=== PATIENT | male | born 1950 | race Two or more races ===

== ENCOUNTER → 2020-08-22 15:59 | Outpatient (BNVA) | payer MEDICARE, SELFPAY | PROVIDERS: PCP Internal Medicine; Visit Provider Nurse Practitioner | DX: Z13.89 Encounter for screening for other disorder (principal) | CPT/HCPCS: Q3014 ==

== ENCOUNTER 2020-09-04 16:36 | Outpatient (REF) | payer MEDICARE, SELFPAY ==
[2020-09-04 17:53] LABS: MANUAL DIFF FLAG NO
[2020-09-04 18:00] LABS: Basophils Absolute Auto 0.1 X10*3/uL (0.0-0.2); Basophils Percent Auto 0.9 % (0-2); Eosinophils Absolute Auto 0.4 X10*3/uL (0.0-0.4); Eosinophils Percent Auto 4.2 % (0-4); Hematocrit 43.8 % (42-52); Hemoglobin 14.2 g/dl (14.0-18.0); Imm Gran Abs Auto 0.01 X10*3/uL (0.00-0.03); Imm Gran Pct Auto 0.1 % (0.0-0.4); Lymphocytes Absolute Auto 1.5 X10*3/uL (1.2-4.9); Lymphocytes Percent Auto 17.2 % (20-40); Mean Corpuscular HGB Conc 32.4 g/dl (31.0-36.0); Mean Corpuscular Hemoglobin 29.6 pg (27.0-33.0); Mean Corpuscular Volume 91.4 fL (80-98); Mean Platelet Volume 10.2 fL (9.4-12.4); Monocytes Absolute Auto 0.7 X10*3/uL (0.1-1.2); Monocytes Percent Auto 7.4 % (2-11); Neutrophils Absolute Auto 6.2 X10*3/uL (2.0-8.3); Neutrophils Percent Auto 70.2 % (45-73); Platelet Count 328 X10*3/uL (160-400); Red Blood Count 4.79 X10*6/uL (4.60-5.80); Red Cell Distribution Width 16.1 % (11.0-16.0); White Blood Count 8.8 X10*3/uL (4.8-10.8)
[2020-09-04 18:31] LABS: Alanine Aminotransferase 22 U/L (0-40); Albumin Level 4.3 g/dL (3.5-5.0); Alkaline Phosphatase 58 U/L (39-117); Anion Gap 13 (12-20); Aspartate Amino Transferase 20 U/L (5-37); Bilirubin Total 0.5 mg/dL (0.0-1.0); Blood Urea Nitrogen 25 mg/dL (9-16); Calcium 8.9 mg/dL (8.4-10.2); Carbon Dioxide 26 mmol/L (22-29); Chloride 105 mmol/L (96-108); Estimated Glomerular Filt Rate 45; Glucose Random 90 mg/dL (60-115); Potassium 4.8 mmol/L (3.3-5.1); Sodium 139 mmol/L (135-145); Total Protein 7.2 g/dL (6.5-8.0)
== END 2020-09-04 16:37 | disposition home or self-care (01) ==
LOC: HO.LAB 16:36
PROVIDERS: PCP Internal Medicine; Visit Provider Nurse Practitioner
DX: K29.70 Gastritis, unspecified, without bleeding (principal)
CPT/HCPCS: 36415; 80053; 85025

== ENCOUNTER 2020-09-05 16:33 | Outpatient (REF) | payer MEDICARE, SELFPAY | END 2020-09-05 16:34 | disposition home or self-care (01) | LOC: HO.LNP 16:33 | PROVIDERS: Visit Provider Nurse Practitioner | DX: Z11.0 Encounter for screening for intestinal infectious diseases (principal); K29.70 Gastritis, unspecified, without bleeding | CPT/HCPCS: 87338 ==

== ENCOUNTER 2021-01-01 11:19 | Day surgery (SDC) | payer MEDICARE, SELFPAY ==
--- NOTE | 2020-12-28 14:49 | HO.ANESPROP2 ---
Documented by User: Adelina Jimenezney 12/28/20 14:50 HPI - Anesthesia Eval Consult details Narrative: 70yo M for Upper Endoscopy and Colonoscopy PMFSH Active Problems Active Problems: All Active Problems (Updated 12/25/20 @ 10:31 by Charisse Tan) Gastritis (Acute) Colon cancer screening (Acute) Past Medical History Medical History CKD (chronic kidney disease), stage III COPD (chronic obstructive pulmonary disease) HTN (hypertension) Rash Family History Family History Family/Other No problems noted. Surgical History Surgical History History of esophagogastroduodenoscopy (EGD) (~2013) Hx of colonoscopy (~2013) Hx of hand surgery Social History Social History Alcohol intake: current Alcohol intake frequency: holidays/special occasions only Patient Tobacco Use Status: Former Tobacco user Use of substances other than those prescribed or required for medical reasons: No Have you been hit, kicked, punched, or otherwise hurt by someone within the past year? If so, by whom?: No Are you DNR?: No Advance Directives: No Advance Directives Information Provided: Yes Poor oral hygiene: No Meds Allergies Allergy/AdvReac Type Severity Reaction Status Date / Time No Known Allergies Allergy Verified 12/25/20 10:35 Home Medications Medication Instructions Recorded Confirmed Last Taken Type hydrochlorothiazide 12.5 mg capsule 12.5 mg PO DAILY 08/22/20 12/25/20 Unknown History lansoprazole 30 mg capsule,delayed 30 mg PO DAILY PRN 08/22/20 12/25/20 Unknown History release loratadine 10 mg tablet 10 mg PO DAILY 08/22/20 12/25/20 Unknown History losartan 100 mg tablet 100 mg PO DAILY 08/22/20 12/25/20 Unknown History albuterol sulfate 2 puff PO Q4-6H PRN 12/25/20 12/25/20 Unknown History budesonide-formoterol [Symbicort] 2 puff PO BID 12/25/20 12/25/20 Unknown History Exam Exam Date and Time: December 28, 2020 1449 Pertinent Lab Results Pertinent Lab Results: Laboratory Tests 09/04/20 09/04/20 16:51 16:51 WBC 8.8 Hgb 14.2 Hct 43.8 Plt Count 328 Sodium 139 Potassium 4.8 Chloride 105 Carbon Dioxide 26 BUN 25 H Creatinine 1.54 H Assessment and Plan Assessment Anesthesia Assessment: Chart Reviewed Documented by User: Hai Scott MD 01/01/21 12:35 PMFSH Past Medical History Medical History CKD (chronic kidney disease), stage III COPD (chronic obstructive pulmonary disease) HTN (hypertension) Rash Family History Family History Family/Other No problems noted. Surgical History Surgical History History of esophagogastroduodenoscopy (EGD) (~2013) Hx of colonoscopy (~2013) Hx of hand surgery Social History Social History Alcohol intake: current Alcohol intake frequency: holidays/special occasions only Patient Tobacco Use Status: Former Tobacco user Use of substances other than those prescribed or required for medical reasons: No Have you been hit, kicked, punched, or otherwise hurt by someone within the past year? If so, by whom?: No Are you DNR?: No Advance Directives: No Advance Directives Information Provided: Yes Poor oral hygiene: No Meds Allergies Allergy/AdvReac Type Severity Reaction Status Date / Time No Known Allergies Allergy Verified 12/25/20 10:35 Home Medications Medication Instructions Recorded Confirmed Last Taken Type hydrochlorothiazide 12.5 mg capsule 12.5 mg PO DAILY 08/22/20 12/25/20 Unknown History lansoprazole 30 mg capsule,delayed 30 mg PO DAILY PRN 08/22/20 12/25/20 Unknown History release loratadine 10 mg tablet 10 mg PO DAILY 08/22/20 12/25/20 Unknown History losartan 100 mg tablet 100 mg PO DAILY 08/22/20 12/25/20 Unknown History albuterol sulfate 2 puff PO Q4-6H PRN 12/25/20 12/25/20 Unknown History budesonide-formoterol [Symbicort] 2 puff PO BID 12/25/20 12/25/20 Unknown History Exam Airway Mallampati Class: II TM Dist: >3cm Neck ROM: Full Denture: Upper (Fixed in place) and Lower Assessment and Plan Assessment Anesthesia Assessment: Anesthesia Plan Discussed and Chart Reviewed Final Anesthetic Review NPO: Yes ASA Class: II Final Preanesthetic Review: No Changes in Pt Med Stat, Meds/Allgs Chart Reviewed, Consent Obtained/Reviewed and Anes Risks/Benef Reviewed Patient Risk: Low Procedure Risk: Low Anesthetic Plan Anesthetic Plan: MAC: Disposition: Standard PACU
[2021-01-01 11:54] VITALS: BMI 25.4
[2021-01-01 11:59] VITALS: BP 137/72; PULSE 98; RESP 18; TEMP 36.7; O2SAT 94
--- NOTE | 2021-01-01 12:08 | P.BOP_ITS ---
Brief Operative Note Date of Service: 01/01/21 Pre-op diagnosis: Colon cancer screening, abdoiminal pain Post-op diagnosis: other (Esophagitis, Gastritis, colon polyps, diverticulosis, hemorrhoid) Procedure: FLEXIBLE TRANSORAL UPPER GASTROINTESTINAL ENDOSCOPY WITH BIOPSIES AND COLONOSCOPY TILL CECUM WITH BIOPSIES AND SNARE POLYPECTOMY UPPER ENDOSCOPY Consent: Indications for the procedure and potential complications of bleeding, perforation, reaction to medications and missed diagnosis were discussed with the patient and informed consent was obtained. Instrument: Olympus GIF H 190 mid size upper endoscope Monitoring: Vital signs and clinical assessment, continuous EKG monitoring, Pulse oximetry, Carbon Dioxide monitoring and blood pressure monitoring were done throughout the procedure. Procedure: The patient was placed in the left lateral decubitis position and pre-procedure medications were administered and a bite block was placed. The endoscope was inserted into the mouth and advanced under direct vision to the third part of duodenum. A careful inspection was made as the upper endoscope was withdrawn including a retroflexed examination of the proximal stomach; Findings and interventions are described below. Findings: Larynx: Normal Esophagus: GE junction at 37 cms, hiatal hernia 37 to 40 cms. Minimal focal esophagitis at GEJ and no Short's. Stomach: Multiple 7 to 8 mm benign appearing nodules with calcifications in the gastric body - biopsied. Moderate gastric erythema with a few antral erosions. Biopsies were obtained. Grade 3 flap valve on retroflexed examination of the cardia. Duodenum: Normal bulb and descending duodenum. Biopsies were obtained from 3rd part of the duodenum to check for celiac sprue Intervention: Biopsies as noted above COLONOSCOPY PROCEDURE NOTE Consent: Indications for the procedure and potential complications of bleeding, perforation, reaction to medications and missed diagnosis were discussed with the patient and informed consent was obtained. Instrument: Olympus PCF H 190 L variable stiffness pediatric colonoscope Monitoring: Vital signs and clinical assessment, intermittent blood pressure monitoring, continuous EKG monitoring, Pulse oximetry and Carbon Dioxide monitoring were done throughout the procedure. Colon withdrawl time was 23 minutes. Procedure: The patient was placed in the left lateral decubitis position and pre-procedure medications were administered. After a digital rectal examination of the ano-rectum, the video colonoscope was inserted into the rectum and advanced through the colon to the cecum. The colonoscope was slowly withdrawn in a retrograde panoramic fashion and the colon mucosa was carefully examined including a retroflexed view of the rectum. Findings and interventions are described below. Procedure Difficulty: colon was long and tortuous and there was some loop formation. No maneuvers were required Findings: Terminal Ileum: Not evaluated Cecum: Normal Ascending Colon: Normal Transverse Colon: Normal Descending Colon: Moderate diverticulosis Sigmoid Colon: A 10-12 mm sessile polyp removed with a hot snare. A 4-5 mm diminutive appearing polyp removed with a cold biopsy. Severe diverticulosis with luminal narrowing. Rectum: Normal Ano-rectum: Moderate internal hemorrhoids Colon preparation: Good after copious irrigation Impression and Post Procedure Diagnosis: Endoscopy Findings: ESOPHAGUS: GE junction at 37 cms, hiatal hernia 37 to 40 cms. Minimal focal esophagitis at GEJ and no Short's. STOMACH: Multiple 7 to 8 mm benign appearing nodules with calcifications in the gastric body - biopsied. Moderate gastric erythema with a few antral erosions. Biopsies were obtained. Colonoscopy Findings: Two small to medium sized polyps removed Moderate to severe diverticulosis seen in the left colon Moderate hemorrhoids on retroflexed exam. Plan: Await pathology results Patient has an appointment on 01/24/21 in the [facility] with Maryuri Harry NP . Repeat Colonoscopy interval based on path results - in 3-5 years if polyps are adenomatous and 10 years if polyps are hyperplastic. Above findings were reviewed with the patient and GERD, hiatal hernia, colon polyps and diverticulosis handouts were given in the discharge area Surgeon: Keven King MD Anesthesia: MAC (Valorie Gomez CRNA) Was an Information Support Project Manager used for this Procedure?: Yes Information Support Project Manager: Lorrie Tyler Estimated blood loss (mL): 0 Pathology: other (A- SMALL BOWEL BIOPSIES- R/O CELIAC B- GASTRIC ANTRUM- R/O H.PYLORI C- GASTRIC NODUALE D- SIGMOID POLYPS) Condition: stable Disposition: PACU
--- NOTE | 2021-01-01 12:08 | MHC.SHP ---
Pre-Procedural Eval Section A Date of Service: 01/01/21 The patient is an INPATIENT: No The History & Physical has been completed within 30 days and I have reviewed it.: No Section B Chief Complaint: gastritis,Screening Details of Present Illness: colon cancer screening, post prandial abd pain Relevant Family History (Specify if Yes): No Relevant Social History: Tobacco Use (Past smoker) Present Medications: see Short Stay Collaborative assessment Medical History: Significant History (COPD, CKD, Htn) History of Previous Operations: Relevant previous surgery/procedure and date(s) (History of esophagogastroduodenoscopy (EGD) (~2013) Hx of colonoscopy (~2013) Hx of hand surgery) Allergies: Allergies Allergy/AdvReac Type Severity Reaction Status Date / Time No Known Allergies Allergy Verified 12/25/20 10:35 Review of Systems Sugical H&P ROS: Negative: Constitution, Cardiovascular and Gastrointestinal and Yes, Specify: Respiratory (chronic cough) Exam Surgical H&P Exam: Normal: Heart, Normal: Lungs, Normal: Extremities and Normal: Abdomen Plan Diagnosis/Plan: Unchanged I have reviewed the history and physical and performed a pertinent physical examination on my patient. No changes have occurred unless specified.
[2021-01-01] MEDS: Lactated Ringers 1,000 ML 100 ML IVCONT (12:14)
[2021-01-01 13:49] VITALS: BP 100/72; PULSE 120; RESP 16; TEMP 36.4; O2SAT 94
[2021-01-01 14:04] VITALS: BP 147/88; PULSE 102; RESP 20; TEMP 36.4; O2SAT 95
== END 2021-01-01 14:35 | disposition home or self-care (01) ==
PROVIDERS: PCP Internal Medicine; Visit Provider Internal Medicine Gastroenterology
PROC: (CPT 45385; principal; 2021-01-01 12:40)
DX: Z12.11 Encounter for screening for malignant neoplasm of colon (principal); D12.5 Benign neoplasm of sigmoid colon; K57.30 Diverticulosis of large intestine without perforation or abscess without bleeding; K64.8 Other hemorrhoids; K29.50 Unspecified chronic gastritis without bleeding; K31.89 Other diseases of stomach and duodenum; J44.9 Chronic obstructive pulmonary disease, unspecified; I12.9 Hypertensive chronic kidney disease with stage 1 through stage 4 chronic kidney disease, or unspecified chronic kidney disease; N18.30 Chronic kidney disease, stage 3 unspecified; Z87.891 Personal history of nicotine dependence
CPT/HCPCS: 45385; 45380; 43239; 88305; 88342; J3010

== ENCOUNTER 2021-03-01 10:38 | Outpatient (REF) | payer MEDICARE, SELFPAY ==
--- NOTE | ~2021-03-01 | XR_ITS ---
EXAMINATION: XR RIBS, RIGHT CLINICAL INFORMATION: Other symptoms and signs involving the musculoskeletal system. COMPARISON: None TECHNIQUE: Single view chest with 4 additional views of right ribs. FINDINGS: Lungs are clear. No consolidation, pneumothorax, or pleural effusion. The cardiomediastinal silhouette and pulmonary vasculature are normal. The aorta is mildly unfolded. Osseous structures are unremarkable. Ribs are intact. No fractures are identified. XR/XR ribs RT min 3V w CXR1V IMPRESSION: Unremarkable examination.
== END 2021-03-01 10:39 | disposition home or self-care (01) ==
LOC: HO.XRAY 10:38
PROVIDERS: Absent Provider Internal Medicine; PCP Internal Medicine; Visit Provider Registered Nurse Community Health
DX: R29.898 Other symptoms and signs involving the musculoskeletal system (principal)
CPT/HCPCS: 71101

== ENCOUNTER → 2021-04-04 10:03 | Outpatient (BNVA) | payer MEDICARE, SELFPAY | PROVIDERS: PCP Internal Medicine; Visit Provider Nurse Practitioner | CPT/HCPCS: Q3014 ==

== ENCOUNTER 2022-03-27 14:23 | Outpatient (REF) | payer MEDICARE, SELFPAY ==
--- NOTE | ~2022-03-27 | XR_ITS ---
EXAMINATION: XR KNEE, RIGHT CLINICAL INFORMATION: Pain. COMPARISON: None. TECHNIQUE: 4 views of the right knee. FINDINGS: There is mild loss of tricompartment joint space without loose bodies or periarticular spurring. No joint effusion seen. No acute fracture or dislocation seen either. XR/XR knee RT 4V IMPRESSION: Mild degenerative arthritic changes right knee.
== END 2022-03-27 14:24 | disposition home or self-care (01) ==
LOC: HO.XRAY 14:23
PROVIDERS: PCP Internal Medicine; Visit Provider Internal Medicine
DX: M25.561 Pain in right knee (principal)
CPT/HCPCS: 73564

== ENCOUNTER → 2022-04-14 10:20 | Outpatient (BNVA) | payer MEDICARE, SELFPAY | PROVIDERS: PCP Internal Medicine; Visit Provider Orthopaedic Surgery | DX: M17.11 Unilateral primary osteoarthritis, right knee (principal) | CPT/HCPCS: 99202 ==

== ENCOUNTER 2023-01-21 14:46 | Outpatient (AMB) | payer MEDICARE, SELFPAY ==
[2023-01-21 14:53] VITALS: BP 136/78; PULSE 89; O2SAT 94; BMI 26.2
--- NOTE | 2023-01-21 14:53 | MHC.OFFVIS ---
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 HE HAS BEEN REFERRED TO EVALUATE FOR DYSPNEA ON EXERTION AND FOR PROPER TREATMENT. COMPLAINS OF GETTING SHORT OF BREATH ON WALKING FOR 1 OR 2 BLOCKS, ESPECIALLY IF HE HAS TO WALK FAST OR UP [place]. AT HOME HE GETS SHORT OF BREATH IF HE. HAS TO CLIMB 1 FLIGHT OF STAIRS HE CAME BACK FROM [place] ABOUT A MONTH AGO AND SINCE THEN HIS THE DYSPNEA ON EXERTION HAS BEEN SOMEWHAT WORSE. THIS HAS BEEN GOING ON FOR THE LAST 3-4 YEARS. HE DOES HAVE HISTORY OF ASTHMA SINCE CHILDHOOD AND HAS BEEN USING ALBUTEROL BUT RARELY. HE HAS HISTORY OF SMOKING HALF PACK OF CIGARETTES A DAY FOR ALMOST 54 YEARS, . AND QUIT 2 AND HALF YEARS AGO FOR HIS SHORTNESS OF BREATH ON EXERTION HE HAS BEEN PRESCRIBED SYMBICORT 160-4.5 AND HE HAS BEEN USING 2 PUFFS B.I.D.. HE SAY IS IT DID NOT MAKE ANY BIG DIFFERENCE. HE TELLS ME THAT WHEN HE WAS IN [place] HE WAS TREATED WITH A PILL, AFTER WHICH HIS BREATHING IMPROVED, HE DOES NOT KNOW THE NAME OF THE PILL,( I SUSPECT IT MAY BE PREDNISONE ) WHEN HE IS SHORT OF BREATH HE DOES NOT HAVE ANY WHEEZING, OR CHEST PAIN. HE DOES GET MILD COUGH WHEN HE IS MORE SHORT OF BREATH, . 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 [facility] Medical History Asthma CKD (chronic kidney disease), stage III COPD (chronic obstructive pulmonary disease) COPD (chronic obstructive pulmonary disease) Dyspnea on exertion HTN (hypertension) Rash Surgical History History of esophagogastroduodenoscopy (EGD) (~2013) Hx of colonoscopy (~2013) Hx of hand surgery Family History Family/Other No problems noted. 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 Review of Systems Const All systems reviewed & are unremarkable except as noted in HPI and below Eyes Reports no additional complaints ENT Reports no additional complaints Card Denies chest pain, Denies syncope, Denies leg edema and Reports dyspnea on exertion Resp Reports dyspnea on exertion GI Reports no additional complaints Reports no additional complaints Musc Reports arthralgias (RIGHT KNEE PAIN DUE TO ARTHRITIS) Skin/Breast Reports system reviewed and no additional complaints, except as documented Neuro Reports no additional complaints and Denies syncope Psych Reports no additional complaints Endo Reports no additional complaints Jamie/Lymph Reports no additional complaints Physical Exam Const General: healthy appearing, comfortable, no acute distress, alert and awake Orientation/consciousness: patient oriented x3 HEENT Head: Yes normal to inspection General nose exam: No nasal polyps present and No nasal discharge present Face and sinus: Yes sinuses nontender Mouth: oropharynx normal Throat: Yes posterior oropharynx normal Eyes General: appearance normal, both eyes and all related structures Neck Neck: Yes normal visual inspection, Yes no lymphadenopathy, Yes trachea midline and Yes no JVD Thyroid: Thyroid normal Chest Chest palpation & inspection: normal inspection of the chest, normal palpation of entire chest wall and no tenderness Resp Other: PERCUSSION NOTE IS RESONANT, BREATH SOUNDS ARE DISTANT ON BOTH SIDES BUT EQUAL. NO AUDIBLE WHEEZES OR CREPITATIONS. Cardio Palpation: normal PMI Rate: regular rate Rhythm: regular rhythm Heart sounds: no gallops and no murmurs GI Palpation (GI): Soft to palpation, nontender, No hepatosplenomegaly present and no masses Auscultation: normal bowel sounds Back/Spine/Pelvis Thoracic/Lumbar Spine: thoracic and lumbar spine normal to inspection Skin General skin exam: no rashes or lesions noted Neuro General: patient oriented x3 and no focal motor deficits Cranial nerves: Yes CN's II-XII intact bilaterally Extrem General: Yes normal to inspection, No no joint enlargement (RIGHT KNEE SLIGHTLY STIFF), Yes no clubbing, cyanosis or edema and Yes no calf tenderness Psych Appearance: grossly normal and well kempt Speech and movement: Normal speech and movement present Assessment & Plan Assessment & Plan (1) Asthma: Comment: This gentleman claims that he has had mild bronchial asthma since childhood, At present she seems to have chronic obstructive pulmonary disease for which he will be evaluated. CBC with diff and IgE level or ordered . Code(s): J45.909 - Unspecified asthma, uncomplicated (2) Dyspnea on exertion: Comment: Dyspnea on exertion which is for the last few years, seems to be due to chronic obstructive pulmonary disease. This will be on basis of his previous smoking. He is being evaluated for chronic obstructive pulmonary disease. Code(s): R06.09 - Other forms of dyspnea (3) COPD (chronic obstructive pulmonary disease): Comment: He has past history of smoking, gradually increasing dyspnea on exertion for the past 3-4 years seems to be consistent with significant COPD PLAN : CHEST X-RAY ORDERED A BASELINE. WILL BE SCHEDULED FOR PULMONARY FUNCTION TEST. TX : FOR THE TIME BEING CONTINUE SYMBICORT 160-4.52 PUFFS B.I.D., AND USE ALBUTEROL HFA 2 PUFFS Q 4-6 HOURS ONLY P.R.N.. ON THE DAY OF PULMONARY FUNCTION TEST TO NOT USE ANY INHALER IN THE MORNING. Code(s): J44.9 - Chronic obstructive pulmonary disease, unspecified Orders: Orders Complete Blood Count Auto Diff Today J45.909 - Unspecified asthma, uncomplicated, R06.09 - Other forms of dyspnea Immunoglobulin E Today J45.909 - Unspecified asthma, uncomplicated, R06.09 - Other forms of dyspnea XR chest 2V Today J45.909 - Unspecified asthma, uncomplicated, R06.09 - Other forms of dyspnea Coding Level of Care Code New Pt Level 4 (05206) Diagnoses Asthma J45.909 Dyspnea on exertion R06.09 COPD (chronic obstructive pulmonary disease) J44.9
== END 2023-01-21 15:22 | disposition home or self-care (01) ==
PROVIDERS: PCP Internal Medicine; Visit Provider Internal Medicine
DX: J44.9 Chronic obstructive pulmonary disease, unspecified (principal); R06.09 Other forms of dyspnea
CPT/HCPCS: 99204

== ENCOUNTER 2023-01-21 14:46 | Outpatient (REF) | payer MEDICARE, SELFPAY ==
--- NOTE | ~2023-01-21 | XR_ITS ---
EXAMINATION: XR CHEST CLINICAL INFORMATION: Dyspnea. COMPARISON: Chest and rib radiographs dated 03/01/2021. TECHNIQUE: 2 views of the chest were obtained. FINDINGS: No significant abnormality is noted involving the heart, lungs, mediastinum, bony thorax or soft tissues. XR/XR chest 2V IMPRESSION: No acute cardiopulmonary process.
[2023-01-21 15:37] LABS: MANUAL DIFF FLAG NO
[2023-01-21 15:59] LABS: Basophils Absolute Auto 0.1 X10*3/uL (0.0-0.2); Basophils Percent Auto 1.2 % (0-2); Eosinophils Absolute Auto 0.4 X10*3/uL (0.0-0.4); Eosinophils Percent Auto 4.8 % (0-4); Hematocrit 46.7 % (42.0-52.0); Hemoglobin 15.2 g/dl (14.0-18.0); Imm Gran Abs Auto 0.02 X10*3/uL (0.00-0.03); Imm Gran Pct Auto 0.2 % (0.0-0.4); Lymphocytes Absolute Auto 1.6 X10*3/uL (1.2-4.9); Mean Corpuscular HGB Conc 32.5 g/dl (31.0-36.0); Mean Corpuscular Hemoglobin 29.9 pg (27.0-33.0); Mean Corpuscular Volume 91.9 fL (80.0-98.0); Mean Platelet Volume 10.1 fL (9.4-12.4); Monocytes Absolute Auto 0.7 X10*3/uL (0.1-1.2); Monocytes Percent Auto 8.5 % (2-11); Neutrophils Absolute Auto 5.6 x10*3/uL (2.0-8.3); Neutrophils Percent Auto 66.3 % (45-73); Platelet Count 297 X10*3/uL (160-400); Red Blood Count 5.08 X10*6/uL (4.60-5.80); Red Cell Distribution Width 16.8 % (11.0-16.0); White Blood Count 8.4 X10*3/uL (4.8-10.8)
[2023-01-23 04:35] LABS: Immunoglobulin E 26 kU/L (<OR=114)
== END 2023-01-21 14:47 | disposition home or self-care (01) ==
LOC: HO.LAB 14:46
PROVIDERS: PCP Internal Medicine; Visit Provider Internal Medicine
DX: J44.9 Chronic obstructive pulmonary disease, unspecified (principal); R06.09 Other forms of dyspnea; Z79.899 Other long term (current) drug therapy
CPT/HCPCS: 36415; 71046; 82785; 85025; 99202

== ENCOUNTER 2023-02-12 14:09 | Outpatient (REF) | payer MEDICARE, SELFPAY ==
--- NOTE | 2023-02-12 15:41 | PFT_ITS ---
Forced vital capacity 55%, FEV1 24%, FEV1/FVC ratio is 34. FEF 25-75 10% and MVV 23%. Post bronchodilator therapy, there is no significant change. Total lung capacity 86%. Residual volume 136%. Diffusion capacity 27%. CONCLUSION: Very severe obstructive airway disorder with evidence of air trapping. There is no significant response to bronchodilator therapy. Clinical correlation is recommended. MD OPRSCHE Vallejo/MODL / [id number]
== END 2023-02-12 14:10 | disposition home or self-care (01) ==
LOC: HO.RESP 14:09
PROVIDERS: PCP Internal Medicine; Visit Provider Internal Medicine
DX: J44.9 Chronic obstructive pulmonary disease, unspecified (principal); R06.09 Other forms of dyspnea
CPT/HCPCS: 94010; 94727; 94729

== ENCOUNTER → 2023-02-12 15:41 | Outpatient (BNV) | payer MEDICARE, SELFPAY | PROVIDERS: PCP Internal Medicine; Visit Provider Internal Medicine | DX: J45.909 Unspecified asthma, uncomplicated (principal) | CPT/HCPCS: 94060; 94727; 94729 ==

== ENCOUNTER 2023-02-25 15:54 | Outpatient (AMB) | payer MEDICARE, SELFPAY ==
--- NOTE | 2023-02-25 15:57 | A.OFFVIS_ITS ---
Intake Vital Signs 02/25/23 16:00 Height 5 ft 9 in Weight 175 lb BMI 25.8 BP 138/70 Blood Pressure Location Lt brachial Position Sitting Pulse 101 H Pulse Source Pulse Oximeter Pulse Oximetry (%) 96 Oxygen Delivery Method Room Air Intake Visit Reasons: COPD Intake Note: pt is here for follow up and states he is short of breath with walking, stairs or showering steam makes him out of breath. also, bending over to tie shoes causes some issues. pt had pft and is here for follow up, chest x-ray and lab work. Allergies No Known Allergies Allergy (Verified 02/25/23 16:18) Medication List - Last Reconciled 02/25/23 by Joe Dubois MD albuterol sulfate 90 mcg/actuation 2 puffs PO Q4-6H PRN budesonide-formoterol 160-4.5 mcg/actuation (Symbicort) 2 puffs PO BID hydrochlorothiazide 12.5 mg PO DAILY lansoprazole (Prevacid) 30 mg PO DAILY PRN loratadine 10 mg PO DAILY losartan 100 mg PO DAILY tamsulosin 0.4 mg PO DAILY Do you need a note to return to daycare/school/sports/work: No HPI COPD HPI Details 73 years old very pleasant gentleman comes, for follow-up after he had pulmonary function test. His daughter came with him and stated that, he gets short of breath on very minimal exertion even at home. He has difficulty in walking even from the parking place to the house. He has mild intermittent cough. Denies any wheezing Does not bring up much phlegm. [facility] Medical History (Updated 02/25/23 @ 16:52 by Joe Dubois MD) Asthma CKD (chronic kidney disease), stage III COPD (chronic obstructive pulmonary disease) COPD (chronic obstructive pulmonary disease) Dyspnea on exertion Exercise hypoxemia HTN (hypertension) Rash Surgical History History of esophagogastroduodenoscopy (EGD) (~2013) Hx of colonoscopy (~2013) Hx of hand surgery Family History Family/Other No problems noted. 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 Review of Systems Const All systems reviewed & are unremarkable except as noted in HPI and below Eyes Reports no additional complaints ENT Reports no additional complaints Card Denies chest pain, Denies syncope, Denies leg edema and Reports dyspnea on exertion Resp Reports dyspnea on exertion GI Reports no additional complaints Reports no additional complaints Musc Reports arthralgias (RIGHT KNEE PAIN DUE TO ARTHRITIS) Skin/Breast Reports system reviewed and no additional complaints, except as documented Neuro Reports no additional complaints and Denies syncope Psych Reports no additional complaints Endo Reports no additional complaints Jamie/Lymph Reports no additional complaints Physical Exam Vital Signs: Last Vital Signs Pulse 101 H 02/25/23 16:00 BP 138/70 02/25/23 16:00 Pulse Ox 96 02/25/23 16:00 Oxygen Delivery Method Room Air 02/25/23 16:00 BMI result Body Mass Index 25.8 Const General: healthy appearing, comfortable, no acute distress, alert and awake Orientation/consciousness: patient oriented x3 HEENT Head: Yes normal to inspection General nose exam: No nasal polyps present and No nasal discharge present Face and sinus: Yes sinuses nontender Mouth: oropharynx normal Throat: Yes posterior oropharynx normal Eyes General: appearance normal, both eyes and all related structures Neck Neck: Yes normal visual inspection, Yes no lymphadenopathy, Yes trachea midline and Yes no JVD Thyroid: Thyroid normal Chest Chest palpation & inspection: normal inspection of the chest, normal palpation of entire chest wall and no tenderness Resp Other: PERCUSSION NOTE IS RESONANT, BREATH SOUNDS ARE VERY DISTANT ON BOTH SIDES BUT EQUAL. NO AUDIBLE WHEEZES OR CREPITATIONS. Cardio Palpation: normal PMI Rate: regular rate Rhythm: regular rhythm Heart sounds: no gallops and no murmurs GI Palpation (GI): Soft to palpation, nontender, No hepatosplenomegaly present and no masses Auscultation: normal bowel sounds Back/Spine/Pelvis Thoracic/Lumbar Spine: thoracic and lumbar spine normal to inspection Skin General skin exam: no rashes or lesions noted Neuro General: patient oriented x3 and no focal motor deficits Cranial nerves: Yes CN's II-XII intact bilaterally Extrem General: Yes normal to inspection, No no joint enlargement (RIGHT KNEE SLIGHTLY STIFF), Yes no clubbing, cyanosis or edema and Yes no calf tenderness Psych Appearance: grossly normal and well kempt Speech and movement: Normal speech and movement present Office Procedures 6 Minute Walk Time:: 16:20 SPO2 % at rest: 93 Pulse at rest: 91 SPO2 % during excercise: 84 Pulse during excercise: 118 SPO2 % after excercise: 94 Pulse after excercise: 100 Distance in yards walked: 100 Jesse Score: 8 Supplemental Oxygen: 2L Performance Observations:: Patient walked on level ground without assistance. After 50 yards O2 saturation dropped to 84% pulse 118. Supplemental O2 applied via nasal cannula at 1L with rest O2 saturation increased to 89%. Continued shortness of breath noted. O2 increase to 2L and after one minute O2 saturation increased to 93% pulse 109. Continued walk for 50+ yards maintaining O2 sat 91- 93. Patient reports he becomes very short of breath with distance, walking at an incline or stairs. [address] - 6 Minute Walk Results Reviewed Results Reviewed: CBC, EIOSINOPHIL CT. 4.8 % IGE LEVEL 26 NORMAL . CHEST XRAY NORMAL . PULM . FUNCTION TEST VERY SEVERE OBSTRUCTIVE AIRWAYS DISORDER . 6 MINUTES WALK TEST desaturates down to 84% , started on O2 2 L/minute O2 sat on walking 93% Assessment & Plan Assessment & Plan (1) COPD (chronic obstructive pulmonary disease): Comment: He has past history of smoking, gradually increasing dyspnea on exertion for the past 3-4 years . PFT, c/w severe chronic obstructive pulmonary disease, no significant response t o BDs. [place] : Symbicort 160-4.52 puffs b.i.d. Add Spiriva Respimat 2 inhalations daily. Use albuterol HFA 2 puffs Q 4-6 hours p.r.n.. * RMV form for handicap plaque is filled out Code(s): J44.9 - Chronic obstructive pulmonary disease, unspecified (2) Dyspnea on exertion: Comment: Dyspnea on exertion which is for the last few years gradually worsening, is secondary to very severe COPD. [place] : As under COPD Code(s): R06.09 - Other forms of dyspnea (3) Exercise hypoxemia: Comment: Patient desaturates quickly on walking. Down to 84%. O2 2 L/minute started, and he could walk with O2 sat of 93% Patient would need oxygen concentration at home, To use 2 L/minute during the day with any physical activity. Portable unit for outdoor use. Code(s): R09.02 - Hypoxemia Orders: Orders AMB 6 minute walk Today J44.9 - Chronic obstructive pulmonary disease, unspecified, R06.09 - Other forms of dyspnea Medications: New tiotropium bromide 2.5 mcg/actuation (Spiriva Respimat) 2 puffs inhalation QAM 30 days 4 grams 3RF severe COPD Coding Level of Care Code Est Pt Level 4 (23599) Diagnoses COPD (chronic obstructive pulmonary disease) J44.9 Dyspnea on exertion R06.09 Exercise hypoxemia R09.02 CPT Codes Coding ([id number])
[2023-02-25 16:00] VITALS: BP 138/70; PULSE 101; O2SAT 96; BMI 25.8
[2023-02-25 16:47] VITALS: PULSE 91; O2SAT 93
== END 2023-02-25 16:51 | disposition home or self-care (01) ==
PROVIDERS: PCP Internal Medicine; Visit Provider Internal Medicine
DX: J44.9 Chronic obstructive pulmonary disease, unspecified (principal); R06.09 Other forms of dyspnea; R09.02 Hypoxemia
CPT/HCPCS: 94618; 99214

== ENCOUNTER → 2023-02-25 15:54 | Outpatient (BNVA) | payer MEDICARE, SELFPAY | PROVIDERS: PCP Internal Medicine; Visit Provider Internal Medicine | DX: J44.9 Chronic obstructive pulmonary disease, unspecified (principal); R06.09 Other forms of dyspnea; R09.02 Hypoxemia; Z87.891 Personal history of nicotine dependence | CPT/HCPCS: 94618; 99212 ==

== ENCOUNTER 2023-03-23 13:34 | Outpatient (AMB) | payer MEDICARE, SELFPAY ==
--- NOTE | 2023-03-23 13:36 | A.OFFVIS_ITS ---
Intake Vital Signs 03/23/23 13:42 Height 5 ft 9 in Weight 174 lb BMI 25.7 BP 110/70 Blood Pressure Location Lt brachial Position Sitting Pulse 108 H Pulse Source Pulse Oximeter Pulse Oximetry (%) 95 Oxygen Delivery Method Nasal Cannula Oxygen Flow Rate 2 Intake Visit Reasons: COPD Intake Note: pt is here for follow up and states he would like a POC trial, He is feeling good, he does get short of breath when trying to walk without oxygen. Advair Vs. symbicort which should he use? Allergies No Known Allergies Allergy (Verified 03/23/23 14:00) Medication List - Last Reconciled 03/23/23 by Joe Dubois MD albuterol sulfate 90 mcg/actuation 2 puffs PO Q4-6H PRN budesonide-formoterol 160-4.5 mcg/actuation (Symbicort) 2 puffs PO BID hydrochlorothiazide 12.5 mg PO DAILY lansoprazole (Prevacid) 30 mg PO DAILY PRN loratadine 10 mg PO DAILY losartan 100 mg PO DAILY tamsulosin 0.4 mg PO DAILY tiotropium bromide 2.5 mcg/actuation (Spiriva Respimat) 2 puffs inhalation QAM 30 days Do you need a note to return to daycare/school/sports/work: No HPI COPD HPI Details This 73 years old gentleman, Cook Islander-speaking is here after 4 weeks being on the oxygen. And he is using Symbicort plus Spiriva daily. Breathing has definitely improved. He does use oxygen at home. He is not bringing his portable cylinder out of the home , too much because it is heavy He is requesting to be evaluated for having a POC device. Still gets short of breath on walking outside the house or climbing stairs. Also does have mild. Intermittent cough PFSH Medical History Exercise hypoxemia COPD (chronic obstructive pulmonary disease) Dyspnea on exertion Asthma Rash CKD (chronic kidney disease), stage III HTN (hypertension) COPD (chronic obstructive pulmonary disease) Surgical History History of esophagogastroduodenoscopy (EGD) (~2013) Hx of colonoscopy (~2013) Hx of hand surgery Family History Family/Other No problems noted. 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 Review of Systems Const All systems reviewed & are unremarkable except as noted in HPI and below Eyes Reports no additional complaints ENT Reports no additional complaints Card Denies chest pain, Denies syncope, Denies leg edema and Reports dyspnea on exertion Resp Reports dyspnea on exertion GI Reports no additional complaints Reports no additional complaints Musc Reports arthralgias (RIGHT KNEE PAIN DUE TO ARTHRITIS) Skin/Breast Reports system reviewed and no additional complaints, except as documented Neuro Reports no additional complaints and Denies syncope Psych Reports no additional complaints Endo Reports no additional complaints Jamie/Lymph Reports no additional complaints Physical Exam Vital Signs: Last Vital Signs Pulse 108 H 03/23/23 13:42 BP 110/70 03/23/23 13:42 Pulse Ox 95 03/23/23 13:42 Oxygen Delivery Method Nasal Cannula 03/23/23 13:42 Oxygen Flow Rate 2 03/23/23 13:42 BMI result Body Mass Index 25.7 Const General: healthy appearing, comfortable, no acute distress, alert and awake Orientation/consciousness: patient oriented x3 HEENT Head: Yes normal to inspection General nose exam: No nasal polyps present and No nasal discharge present Face and sinus: Yes sinuses nontender Mouth: oropharynx normal Throat: Yes posterior oropharynx normal Eyes General: appearance normal, both eyes and all related structures Neck Neck: Yes normal visual inspection, Yes no lymphadenopathy, Yes trachea midline and Yes no JVD Thyroid: Thyroid normal Chest Chest palpation & inspection: normal inspection of the chest, normal palpation of entire chest wall and no tenderness Resp Other: PERCUSSION NOTE IS RESONANT, BREATH SOUNDS ARE VERY DISTANT ON BOTH SIDES BUT EQUAL. NO AUDIBLE WHEEZES OR CREPITATIONS. Cardio Palpation: normal PMI Rate: regular rate Rhythm: regular rhythm Heart sounds: no gallops and no murmurs GI Palpation (GI): Soft to palpation, nontender, No hepatosplenomegaly present and no masses Auscultation: normal bowel sounds Back/Spine/Pelvis Thoracic/Lumbar Spine: thoracic and lumbar spine normal to inspection Skin General skin exam: no rashes or lesions noted Neuro General: patient oriented x3 and no focal motor deficits Cranial nerves: Yes CN's II-XII intact bilaterally Extrem General: Yes normal to inspection, No no joint enlargement (RIGHT KNEE SLIGHTLY STIFF), Yes no clubbing, cyanosis or edema and Yes no calf tenderness Psych Appearance: grossly normal and well kempt Speech and movement: Normal speech and movement present Office Procedures 6 Minute Walk Time:: 14:10 SPO2 % at rest: 94 Pulse at rest: 104 Pulse during excercise: 123 SPO2 % after excercise: 92 Pulse after excercise: 112 Distance in yards walked: 120 Jesse Score: 6 Performance Observations:: Manolo walked on level ground without assistance, he walked on room air for 2 minutes before his SPO2 decreased to 86%. O2 started on pulsed setting 2 then increased to pulsed setting 3 to bring his SPO2 up to 92%. He completed the walk on pulsed setting 3 maintaining his SPO2 90-92%. 59170 - 6 Minute Walk Results Reviewed Results Reviewed: IGE 26 Normal Eiosinophil count 4.6 % [place] ct 0.4 6 Minutes walk test to qualify for POC . Assessment & Plan Assessment & Plan (1) COPD (chronic obstructive pulmonary disease): Comment: He has past history of smoking, gradually increasing dyspnea on exertion for the past 3-4 years . PFT, c/w severe chronic obstructive pulmonary disease, no significant response to BDs. [place] : Symbicort 160-4.52 puffs b.i.d. Add Spiriva Respimat 2 inhalations daily. Use albuterol HFA 2 puffs Q 4-6 hours p.r.n.. Code(s): J44.9 - Chronic obstructive pulmonary disease, unspecified (2) Exercise hypoxemia: Comment: Patient desaturates quickly on walking. Down to 84%. O2 2 L/minute started, and he could walk with O2 sat of 93% Patient would need oxygen concentration at home, To use 2 L/minute during the day with any physical activity. Portable unit for outdoor use. Today he was evaluated for using a oxygen conserving mode. Qualify to use 3 L/minute with oxygen conserving mode. Initially he was hesitant to the conserving unit, But after thinking and full explanation by his daughter he is now requesting to POC. For portability. We will send the orders to his DME provided. Code(s): R09.02 - Hypoxemia (3) Asthma: Comment: This gentleman claims that he has had mild bronchial asthma since childhood, At present she seems to have chronic obstructive pulmonary disease for which he will be evaluated. [place] : As under COPD, Code(s): J45.909 - Unspecified asthma, uncomplicated Orders: Orders AMB 6 minute walk Today J44.9 - Chronic obstructive pulmonary disease, unspecified Medications: New budesonide-formoterol 160-4.5 mcg/actuation (Symbicort) 2 puffs inhalation Q12H 10.2 grams 5RF copd 30 days Coding Level of Care Code Est Pt Level 3 (61142) Diagnoses COPD (chronic obstructive pulmonary disease) J44.9 Exercise hypoxemia R09.02 Asthma J45.909 CPT Codes Coding ([id number])
[2023-03-23 13:42] VITALS: BP 110/70; PULSE 108; O2SAT 95; BMI 25.7
[2023-03-23 14:18] VITALS: PULSE 104; O2SAT 94
== END 2023-03-23 14:38 | disposition home or self-care (01) ==
PROVIDERS: PCP Internal Medicine; Visit Provider Internal Medicine
DX: J44.9 Chronic obstructive pulmonary disease, unspecified (principal); R09.02 Hypoxemia; J45.909 Unspecified asthma, uncomplicated
CPT/HCPCS: 94618; 99213

== ENCOUNTER → 2023-03-23 13:34 | Outpatient (BNVA) | payer MEDICARE, SELFPAY | PROVIDERS: PCP Internal Medicine; Visit Provider Internal Medicine | DX: J44.9 Chronic obstructive pulmonary disease, unspecified (principal); R06.09 Other forms of dyspnea; J45.909 Unspecified asthma, uncomplicated | CPT/HCPCS: 94618; 99212 ==

== ENCOUNTER 2024-04-07 10:30 | Outpatient (AMB) | payer MEDICARE, SELFPAY ==
[2024-04-07 10:33] VITALS: BP 104/62; PULSE 90; O2SAT 94; BMI 25.4
--- NOTE | 2024-04-07 10:33 | A.OFFVIS_ITS ---
Vital Signs 04/07/24 10:33 Height 5 ft 9 in Weight 172 lb BMI 25.4 BP 104/62 Blood Pressure Location Rt brachial Position Sitting Pulse 90 Pulse Source Doppler Pulse Oximetry (%) 94 Oxygen Delivery Method Nasal Cannula Oxygen Flow Rate 4 Intake Visit Reasons: COPD Value Analyst Required: Yes Value Analyst Name: Ricehlle Mcdonald Snehal Allergies No Known Allergies Allergy (Verified 04/07/24 10:39) HPI HPI COPD: Details: 74-year-old gentleman, former greater than 40 pack-year smoker with underlying very severe COPD on supplemental oxygen via POC, previously seen at [facility], now referred secondary to insurance reasons. Patient states that he has been using BrezTri and albuterol MDI with reasonable control of his symptoms. Patient continues to participate in pulmonary rehab at [facility]. He has had recent lung cancer screening at [facility] in June of 2023. He denies recent exacerbations. [facility] Medical History (Updated 04/07/24 @ 11:00 by Skyler Saunders MD) Exercise hypoxemia COPD (chronic obstructive pulmonary disease) Dyspnea on exertion Asthma Rash CKD (chronic kidney disease), stage III HTN (hypertension) COPD (chronic obstructive pulmonary disease) Surgical History History of esophagogastroduodenoscopy (EGD) (~2013) Hx of colonoscopy (~2013) Hx of hand surgery Family History Family/Other No problems noted. 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 Review of Systems Const Denies daytime sleepiness, Denies excessive sweating, Denies fatigue, Denies fever(s), Denies lethargy, Denies malaise, Denies night sweats, Denies snoring and Denies weight loss Eyes Denies blurry vision and Denies itchy eyes ENT Denies nasal congestion, Denies post nasal drip, Denies sinus pain, Denies sinus pressure and Denies other ( Thrush) Card Denies chest pain, Denies pedal edema, Denies dyspnea, Denies orthopnea and Denies paroxysmal nocturnal dyspnea Resp Denies cough, Denies hemoptysis, Denies excessive phlegm production, Denies dyspnea, Denies snoring and Denies wheezing GI Denies abdominal pain and Denies heartburn Musc Denies myalgias, Denies arthralgias and Denies joint swelling Skin/Breast Denies rash Neuro Denies memory loss and Denies seizure-like activity Psych Denies abnormal sleep pattern, Denies anxiety and Denies memory loss Endo Denies excessive sweating, Denies fatigue and Denies heat intolerance Jamie/Lymph Denies easy bruising Aller/Immun Denies itchy eyes, Denies seasonal rhinorrhea and Denies wheezing Physical Exam Vital Signs: Last Vital Signs Pulse 90 04/07/24 10:33 BP 104/62 04/07/24 10:33 Pulse Ox 94 04/07/24 10:33 Oxygen Delivery Method Nasal Cannula 04/07/24 10:33 Oxygen Flow Rate 4 04/07/24 10:33 BMI result Body Mass Index 25.4 Const General: no acute distress and alert Nutritional Appearance: not obese Orientation/consciousness: Other orientation findings ( oriented) HEENT Head: Yes atraumatic Eyes General: appearance normal, both eyes and all related structures Sclerae: sclerae normal EOM: EOMs intact bilaterally Neck Neck: Yes supple Lymphatic: no lymphadenopathy noted Resp Effort & Inspection: normal respiratory effort and no use of accessory muscles Auscultation: clear to auscultation bilaterally Cardio Rate: regular rate Rhythm: regular rhythm Heart sounds: no gallops, no murmurs and no rubs Skin General skin exam: other ( warm) Extrem General: No clubbing, No cyanosis and No edema Assessment & Plan Assessment & Plan (1) COPD (chronic obstructive pulmonary disease): Code(s): J44.9 - Chronic obstructive pulmonary disease, unspecified Category: Medical Plan: Underlying severe to very severe COPD with reasonable control on current regimen of BrezTri and albuterol MDI. Continue current regimen. Patient continues to follow-up with [facility] pulmonary rehab. (2) Supplemental oxygen dependent: Code(s): Z99.81 - Dependence on supplemental oxygen Category: Medical Plan: Continue supplemental oxygen to maintain O2 saturation of 88-92%. (3) Personal history of nicotine dependence: Code(s): Z87.891 - Personal history of nicotine dependence Category: Medical Plan: Results of lung cancer screening from [facility] lung cancer screening program in June of 2023 reviewed, no worrisome nodules. Continue with yearly screening, next in June of 2024. Coding Level of Care Code New Pt Level 4 (52740) Complex EM visit Add On G2211 Diagnoses COPD (chronic obstructive pulmonary disease) J44.9 Supplemental oxygen dependent Z99.81 Personal history of nicotine dependence Z87.891
== END 2024-04-07 10:57 | disposition home or self-care (01) ==
PROVIDERS: PCP Internal Medicine; Visit Provider Internal Medicine Pulmonary Disease
DX: J44.9 Chronic obstructive pulmonary disease, unspecified (principal); Z99.81 Dependence on supplemental oxygen; Z87.891 Personal history of nicotine dependence
CPT/HCPCS: 99204; G2211

== ENCOUNTER → 2024-04-07 10:30 | Outpatient (BNVA) | payer MEDICARE, SELFPAY | PROVIDERS: PCP Internal Medicine; Visit Provider Internal Medicine Pulmonary Disease | DX: J44.9 Chronic obstructive pulmonary disease, unspecified (principal); Z99.81 Dependence on supplemental oxygen; Z87.891 Personal history of nicotine dependence | CPT/HCPCS: 99202 ==

== ENCOUNTER 2024-05-23 11:44 | Outpatient (REF) | payer MEDICARE, SELFPAY ==
[2024-05-23 13:27] LABS: MANUAL DIFF FLAG NO
[2024-05-23 13:33] LABS: Basophils Absolute Auto 0.1 X10*3/uL (0.0-0.2); Basophils Percent Auto 1.1 % (0-2); Eosinophils Absolute Auto 0.4 X10*3/uL (0.0-0.4); Hematocrit 45.8 % (42.0-52.0); Hemoglobin 14.9 g/dl (14.0-18.0); Imm Gran Abs Auto 0.02 X10*3/uL (0.00-0.03); Imm Gran Pct Auto 0.3 % (0.0-0.4); Lymphocytes Absolute Auto 1.4 X10*3/uL (1.2-4.9); Lymphocytes Percent Auto 19.6 % (20-40); Mean Corpuscular HGB Conc 32.5 g/dl (31.0-36.0); Mean Corpuscular Volume 92.2 fL (80.0-98.0); Mean Platelet Volume 10.2 fL (9.4-12.4); Monocytes Absolute Auto 0.6 X10*3/uL (0.1-1.2); Monocytes Percent Auto 8.7 % (2-11); Neutrophils Absolute Auto 4.5 x10*3/uL (2.0-8.3); Neutrophils Percent Auto 64.3 % (45-73); Platelet Count 319 X10*3/uL (160-400); Red Blood Count 4.97 X10*6/uL (4.60-5.80); Red Cell Distribution Width 16.8 % (11.0-16.0); White Blood Count 7.1 X10*3/uL (4.8-10.8)
[2024-05-23 13:41] LABS: Estimated Average Glucose 103 mg/dL; Hemoglobin A1C 128.2472 umol/L; Hemoglobin A1c % 5.2 % (<6.0); Total Hemoglobin (HGBA1C) 3864.5871 umol/L
[2024-05-23 14:13] LABS: Alanine Aminotransferase 22 U/L (0-40); Albumin Level 4.2 g/dL (3.5-5.0); Alkaline Phosphatase 52 U/L (39-117); Anion Gap 14 (12-20); Aspartate Amino Transferase 26 U/L (5-37); Blood Urea Nitrogen 17 mg/dL (9-16); Calcium 9.4 mg/dL (8.4-10.2); Carbon Dioxide 27 mmol/L (22-29); Chloride 101 mmol/L (96-108); Cholesterol 196 mg/dL (<200); Estimated Glomerular Filt Rate 56; Glucose Random 93 mg/dL (60-115); HDL Cholesterol 91 mg/dL (>40); LDL Cholesterol Calculated 94 mg/dL (<100); Sodium 138 mmol/L (135-145); TSH reflex Free T4 2.33 uIU/mL (0.32-4.0); Total Protein 7.1 g/dL (6.5-8.0); Triglycerides 55 mg/dL (<150)
[2024-05-23 14:16] LABS: Reflex LDLD? No
== END 2024-05-23 11:45 | disposition home or self-care (01) ==
LOC: HO.HHCL 11:44
PROVIDERS: Visit Provider Internal Medicine
DX: Z13.1 Encounter for screening for diabetes mellitus (principal); I12.9 Hypertensive chronic kidney disease with stage 1 through stage 4 chronic kidney disease, or unspecified chronic kidney disease; N18.31 Chronic kidney disease, stage 3a
CPT/HCPCS: 36415; 80053; 80061; 83036; 84443; 85025

== ENCOUNTER 2024-07-13 11:38 | Outpatient (AMB) | payer MEDICARE, SELFPAY ==
--- NOTE | 2024-07-13 11:46 | A.OFFVIS_ITS ---
Intake Visit Reasons: new prob Left hand tenosynovitis Intake Note: Manolo is a 74 year old male who presents to the office today for left hand tenosynovitis. Pt states he has pain when he is bending his thumb or grabbing something. Pt denies any radiating pain. Pt denies any previous surgeries,injuries or injections in his left hand. Pt states about 15 years ago he got an injection but doesn't remember if it was his elbow or shoulder. Chemist Enzymes Required: Yes Chemist Enzymes Language: Surgery Technician Services: Chemist Enzymes Present Chemist Enzymes Name: Tonya([id number]) Allergies No Known Allergies Allergy (Verified 07/13/24 11:48) HPI HPI new prob Left hand tenosynovitis: Details: Patient is a 74-year-old male who presents for evaluation of dorsal left thumb pain, ongoing for ?many months?. Patient states that this pain is primarily between the MCP and IP joints of the left thumb. Patient states he has been going to occupational therapy for ?a few? sessions, and states that he does feel that this has helped, but he is still experiencing pain here. Patient inquires if this is an indication for a steroid injection. Denies any ongoing numbness or tingling. No other acute complaints or concerns at this time. [facility] Medical History Exercise hypoxemia COPD (chronic obstructive pulmonary disease) Dyspnea on exertion Asthma Rash CKD (chronic kidney disease), stage III HTN (hypertension) COPD (chronic obstructive pulmonary disease) Surgical History History of esophagogastroduodenoscopy (EGD) (~2013) Hx of colonoscopy (~2013) Hx of hand surgery Family History Family/Other No problems noted. 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 Neuro: Normal sensation of the tips of all digits of the left hand at this time Vascular: Cap refill brisk Pain: Patient reports no tenderness to palpation about the left thumb, wrist, or hand Pain in the dorsal thumb with range of motion ROM: Patient is able to make a closed fist and extend all digits of the left hand fully, but reports discomfort when doing so Skin: No lacerations or abrasions. General: No ecchymosis, erythema, or evidence of infection. Psych: Appears grossly normal Affect normal Attitude cooperative Assessment & Plan Assessment & Plan (1) Pain of left thumb: Code(s): M79.645 - Pain in left finger(s) Category: Medical Plan 1. Tendinitis and pain of the left thumb Ongoing for several months Patient was provided with comfort cool thumb spica splint Patient is educated he should continue with occupational therapy, which he has been going to since being referred by his primary care provider Patient was amenable to this plan Patient was advised on conservative pain management measures, such as rest, ice, elevation, [id number] pain medication as needed Patient will follow-up as needed with any acute concerns Coding Level of Care Code New Pt Level 3 (52152) Diagnoses Pain of left thumb M79.645
== END 2024-07-13 12:29 | disposition home or self-care (01) ==
PROVIDERS: PCP Internal Medicine
DX: M79.645 Pain in left finger(s) (principal)
CPT/HCPCS: 99203

== ENCOUNTER → 2024-07-13 11:38 | Outpatient (BNVA) | payer MEDICARE, SELFPAY | PROVIDERS: PCP Internal Medicine | DX: M79.645 Pain in left finger(s) (principal) | CPT/HCPCS: 99202 ==

== ENCOUNTER 2024-07-27 10:47 | Outpatient (REF) | payer MEDICARE, SELFPAY ==
--- NOTE | ~2024-07-27 | XR_ITS ---
EXAMINATION: XR SHOULDER 2 OR MORE VIEWS RIGHT HISTORY: M25.511 - Pain in right shoulder COMPARISON: There are no prior studies available for comparison. FINDINGS: Three views of the right shoulder are submitted. Osseous mineralization is normal. There is no fracture or dislocation. The glenohumeral joint is maintained. There is mild narrowing of the AC joint. The soft tissues are unremarkable. XR/XR shoulder RT min 2V IMPRESSION: Mild narrowing of the AC joint. Electronically signed by: Zachery Aguirre MD 07/28/2024 07:52 AM PERLITA FAGAN
--- OUTSIDE RECORDS SUMMARY | 2024-07-27 12:53 | XMS_ITS | Encounter Summary ---
Author Organization [employer] Address [address] [place] [address] [address] [place] [address] Care Team Providers Care Health Promotion Educator Name Role Phone Josefina Pandey MD Primary Care Provide r Reason for Visit * Reason Onset Date Comments r/s appt 08/22/2022 Encounter Details Date Type Department Care Team ([facility] st Contact Info) Description 08/22/2022 Telephone [facility] [address] [place] [address] Josefina Pandey MD [address] [place] [address] r/s appt Social History Tobacco Use Types Packs/Day Years Used Date Smoking Tobacco: Never Assessed Sex and Gender Information Value Date Recorded Sex Assigned at Male 04/28/2022 10:37 AM EDT Legal Sex Male 10:37 AM EDT Gender Identity Male 04/28/2022 10:37 AM EDT Sexual Orientation Straight 04/28/2022 10 :37 AM EDT documented as of this encounter Miscellaneous Notes * Telephone Encounter - Radha Reyna - 08/22/2022 12:06 PM EST Tc from pt requesting to r/s for DERM on 08/29/2022. [place] and probably won't be back until September. Please contact pt at [phone] Indian Speaker documented in this encounter Plan of Treatment Not on file documented as of this encounter Visit Diagnoses Not on filedocumented in this encounter Care Teams Health Promotion Educator Relationship Specialty Start Date End Date Josefina Pandey MD [address] [place] [address] PCP - General Family Medicine 11/05/20 documented as of this encounter
--- OUTSIDE RECORDS SUMMARY | 2024-07-27 12:53 | XMS_ITS | Encounter Summary ---
Author Organization [facility] Address [address] [place] [address] Care Team Providers Care Marine Photographer Name Role Phone Courtney Combs MD Primary Care Prov ider Encounter Details Date Type Department Care Team (Late Contact Info) Description 07/04/2024 Telephone Lung Screening Program - [address] [place] [address] Rosa Elena Horn MA Social History Tobacco Use Types Packs/Day Years Used Date Smoking Tobacco: Former Cigarettes 0.5 55.2 0 06/29/1964 - 08/28/2019 Smokeless Tobacco: Never Alcohol Use Standard Drinks/Week Comments Not Currently 0 (1 standard drink = 0.6 oz pur e alcohol) Sex and Gender Information Value Date Recorded Sex Assigned at Not on file Gender Identity Not on file Sexual Orientation Not on file Job Start Date Occupation Industry Not on file Not on file Not on file documented as of this encounter Progress Notes * Rosa Elena Horn MA - 07/04/2024 11:37 AM EST [email or web address] is the email to sent everything to documented in this encounter Plan of Treatment Upcoming Encounters Date Type Department Care Team (Late Contact Info) Description 10/07/2024 2:00 PM EDT Office Visit Adult Medicine [address] [phone] Courtney Combs MD [address] [place] [address] [place] [address] documented as of this encounter Visit Diagnoses Not on filedocumented in this encounter Care Teams Marine Photographer Relationship Specialty Start Date End Date Courtney Combs MD [address] [place] [address] PCP - General 04/01/23 documented as of this encounter
--- OUTSIDE RECORDS SUMMARY | 2024-07-27 12:53 | XMS_ITS | Encounter Summary ---
Author Organization [facility] Address [address] [place] [address] 7 [place] [address] Care Team Providers Care Event Decorator And Designer Name Role Phone Josefina Pandey MD Primary Care Provide r Encounter Details Date Type Department Care Team (Late st Contact Info) Description 03/10/2023 Orders Only [facility] MEDICINE [address] [place] [address] Provider, MD Constantine Social History Tobacco Use Types Packs/Day Years Used Date Smoking Tobacco: Former Cigarettes Passive Smoke Exposure: Never Smokeless Tobacco: Never Alcohol Use Standard Drinks/Week Comments Yes 0 (1 standard drink = 0.6 oz pur e alcohol) Sex and Gender Information Value Date Recorded Sex Assigned at Male 04/28/2022 10:37 AM EDT Legal Sex Male 10:37 AM EDT Gender Identity Male 04/28/2022 10:37 AM EDT Sexual Orientation Straight 04/28/2022 10 :37 AM EDT documented as of this encounter Plan of Treatment Not on file documented as of this encounter Procedures Procedure Name Priority Date/Time Associated Diagnosis Comments HM COLONOSCOPY Routine 01/01/2021 documented in this encounter Results * Hm Colonoscopy (01/01/2021) Historical Provider HEALTH MAINTENANCE Final Result documented in this encounter Visit Diagnoses Not on filedocumented in this encounter Care Teams Event Decorator And Designer Relationship Specialty Start Date End Date Josefina Pandey MD [address] [place] [address] PCP - General Family Medicine 11/05/20 documented as of this encounter
--- OUTSIDE RECORDS SUMMARY | 2024-07-27 12:53 | XMS_ITS | Clinical Summary ---
Author Organization [facility] Address [address] [place] [address] Care Team Providers Care Aboriginal Education Worker Coordinator Name Role Phone Josefina Pandey MD Primary Care Provide r Allergies No known active allergies Medications albuterol HFA (PROVENTIL HFA;VENTOLIN HFA) 108 (90 Base) MCG/ACT inhaler INHALE 2 PUFFS BY MOUTH EVERY 4 TO 6 HOURS NEEDED 1 Active Symbicort 160-4.5 MCG/ACT inhaler INHALE 2 PUFFS BY MOUTH TWICE DAILY IN THE MORNING AND IN THE EVENING 1 Active chlorhexidine (PERIDEX) 0.12 % solution if needed 1 Active hydroCHLOROthia zide (HYDRODIURIL) 12.5 MG tablet Take 12.5 mg by mouth 1 (one) time each day 1 Active lansoprazole (PREVACID) [address] capsule TAKE 1 CAPSULE BY MOUTH EVERY DAY BEFORE A MEAL 1 Active loratadine (CLARITIN) 10 MG tablet TAKE 1 TABLET BY MOUTH EVERY DAY NEEDED FOR ALLERGIES 1 Active losartan (COZAAR) 100 MG tablet Take 100 mg by mouth 1 (one) time each day 1 Active Active Problems Problem Noted Date Diagnosed Date Chronic obstructive pulmonary disease 10/10/2020 Essential (primary) hypertension 10/10/2020 Gastritis 10/10/2020 Social History Tobacco Use Types Packs/Day Years Used Date Smoking Tobacco: Never Assessed Sex and Gender Information Value Date Recorded Sex Assigned at Not on file Legal Sex Male 6:47 PM EST Gender Identity Not on file Sexual Orientation Not on file Last Filed Vital Signs Vital Sign Reading Time Taken Comments Blood Pressure 120/80 10/10/2020 3:19 PM EDT Pulse 111 10/10/2020 3:19 PM EDT Temperature - - Respiratory Rate - - Oxygen Saturation 92% 10/10/2020 3:19 PM EDT Inhaled Oxygen Concentration - - Weight 78 kg (172 lb) 10/10/2020 3:19 PM EDT Height 175.3 cm (5' 9 ) 10/10/2020 3:19 PM EDT Body Mass Index 25.4 10/10/2020 3:19 PM EDT Plan of Treatment Health Maintenance Due Date Last Done Comments Colorectal Cancer Screening: Annual FOBT 1998 Colorectal Cancer Screening: Colonoscopy 1998 Colorectal Cancer Screening: Sigmoidoscopy 1998 Pneumococcal Vaccine: 65+ Ye ars (1 of 1 - PCV) 2014 Influenza Vaccine (#1) 2024 Hepatitis B Vaccine Aged Out No longe r eligible based on patient's age to complete this topic Insurance Care Teams Aboriginal Education Worker Coordinator Relationship Specialty Start Date End Date Josefina Pandey MD [address] [place] [phone] PCP - General Internal Medicine 08/29/20
--- OUTSIDE RECORDS SUMMARY | 2024-07-27 12:53 | XMS_ITS | Encounter Summary ---
Author Organization [employer] Address [address] [facility] 7 [place] [address] Care Team Providers Care Supervisor Jewelry Department Name Role Phone Josefina Pandey MD Primary Care Provide r Reason for Visit * Reason Onset Date Comments Appointment Request 04/26/2024 Encounter Details Date Type Department Care Team ([facility] Contact Info) Description 04/26/2024 Telephone [facility] MEDICINE [address] [place], [place] [phone] Josefina Pandey MD [address] [place] [address] Appointment Request Social History Tobacco Use Types Packs/Day Years Used Date Smoking Tobacco: Former Cigarettes Passive Smoke Exposure: Past Smokeless Tobacco: Never Alcohol Use Standard Drinks/Week Comments Yes 0 (1 standard drink = 0.6 oz pur e alcohol) Depression Answer Date Recorded Patient Health Questionnaire-9 Score 9 06/01/2024 Patient Health Questionnaire-9 Score 9 06/01/2024 Last PHQ-9: Questionnaire Data Not on file 1 08/02/2023 Housing Stability Answer Date Recorded What is your housing situation today? I have saturnino carrillo 06/01/[address] you li ve. Do you have problems with any of the following? None of the above 06/01/2024 Food Insecurity Answer Date Recorded Within the past 12 months, y ou worried that your food would run out before you got money to buy more: Never True 06/01/2024 Within the past 12 months,th e food you bought just didn't last and you didn't have enough money to get more: Never True 09/2023 Transportation Answer Date Recorded In the past 12 months, has l ack of transportation kept you from medical appts, meetings, work or from getting things needed for daily living? No 06/01/2024 Utilities Answer Date Recorded In the past 12 months, has t he electric, gas, oil or water company threatened to shut off services in your home? No 06/01/2024 Depression Answer Date Recorded Patient Health Questionnaire-2 Score 6 06/01/2024 Internet Access Answer Date Recorded Internet Access Q1 Yes 06/01/2024 Internet Access Q2 Not on file 06/01/2024 Sex and Gender Information Value Date Recorded Sex Assigned at Male 04/28/2022 10:37 AM EDT Legal Sex Male 10:37 AM EDT Gender Identity Male 04/28/2022 10:37 AM EDT Sexual Orientation Straight 04/28/2022 10 :37 AM EDT documented as of this encounter Miscellaneous Notes * Telephone Encounter - Jon Ureña - 04/26/2024 11:52 AM EDT Tc from pt requesting status on wait list for sooner appt with DERM , pt is scheduled for 05/13/24.Appt is still expected. Please contact at [phone] documented in this encounter Plan of Treatment Not on file documented as of this encounter Visit Diagnoses Not on filedocumented in this encounter Additional Health Concerns Assessment Noted Time PHQ-9 Depression Total Score: 0 04/03/20 23 10:43 AM EDT documented as of this encounter Care Teams Supervisor Jewelry Department Relationship Specialty Start Date End Date Josefina Pandey MD [address] [place] [address] PCP - General Family Medicine 11/05/20 documented as of this encounter
--- OUTSIDE RECORDS SUMMARY | 2024-07-27 12:54 | XMS_ITS | Clinical Summary ---
Author Organization [facility] [address] [facility] Address [address] [place] [address] Phone Care Team Providers Care Evaluation Assistant Name Role Phone Courtney Combs MD Primary Care Prov ider Allergies No known active allergies Medications Medication Sig Dispensed Refills Start Date End Date Status albuterol HFA (PROAIR HFA ; PROVENTIL HFA ; VENTOLIN HFA) 90 mcg/actuation inhaler Inhale 2 puffs every 4 (four) hours if needed. Active qrwxbwjiyq-zewbndtt-i ormoterol (Breztri Aerosphere) 160-9-4.8 mcg/actuation HFA aerosol inhaler inhaler Inhale 17.7778 puffs. 07/13/2023 Active hydroCHLOROthiazide 12.5 mg tablet Take 1 tablet (12.5 mg total) by mouth 1 (one) time each day. Active hydrocortisone 2.5 % cream Apply topically 2 (two) times a day. Active lansoprazole (PREVACID SOLUTAB) 30 mg dispersible tablet Act scooter loratadine (CLARITIN) 10 mg tablet Take 1 tablet (10 mg total) by mouth 1 (one) time each day. Active losartan (COZAAR) 100 mg tablet Take 1 tablet (100 mg total) by mouth 1 (one) time each day. Active tamsulosin (FLOMAX) 0.4 mg 24 hr capsule Take 1 capsule (0.4 mg total) by mouth 1 (one) time each day. Active hydrocortisone 0.5 % topical cream Apply 2 g topically 2 times daily. 10/29/2023 Active Oxygen Therapy (O2) gas Inhale into the lungs. 2L Active fluticasone-umeclidin ium-vilanterol (Trelegy Ellipta) 200-62.5-25 mcg inhaler Inhale 1 Puff into the lungs daily. 11/10/2023 Active lansoprazole (PREVACID SOLUTAB) 30 mg dispersible tablet Take by mouth. Active Active Problems Problem Noted Date Diagnosed Date Primary hypertension 10/29/2023 Essential hypertension 08/25/2023 Chronic gastritis 08/25/2023 Stage 3a chronic kidney disease 08/25/2023 Pain in knee region after replacement of knee cm int 08/25/2023 Rash 08/25/2023 Dermatitis, seborrheic 08/25/2023 Acute exacerbation of chronic obstructive airway s disease 08/25/2023 Chronic hypoxemic respiratory failure 08/25/2023 COPD (chronic obstructive pulmonary disease) Colon cancer screening 08/25/2023 Healthcare maintenance 08/25/2023 Stage 4 very severe COPD by GOLD classification 08/25/2023 Chronic hypoxemic respiratory failure 05/07/2023 Overview (08/25/2023): Last Assessment & Plan: Continue using oxygen at 3 L/min. Stage 4 very severe COPD by GOLD classification 05/07/2023 Overview (08/25/2023): Last Assessment & Plan: 74-year-old man, ex-smoker who has stage IV COPD I explained him the prognosis, stage of his disease FEV1 is 24% predicted The plan is the followin. Stop Symbicort 2. Start Breztri 1 puff twice a day 3. Technique has been explained 4. Referral to pulmonary rehab 5. Continue albuterol as needed 6. Return to clinic in 3 months Encounters Date Type Department Care Team Description 07/25/2024 Telephone Lung Screening Program - [address] [place] [phone] Carmel Benitez [place] Results (Annual Lung Screening- Suspicious findings) 07/15/2024 3:18 PM EST - 07/15/2024 11:59 PM EST Hospital Encounter [facility] CT Scan [address] [place] [address] History of smoking Discharge Disposition: Home or Self Care 07/04/2024 Telephone Lung Screening Program - [place] [address] [facility] [address] [place] [address] Rosa Elena Horn MA from Last 3 Months Immunizations Name Administration Dates Next Due Moderna SARS-CoV-2 COVID-19, mRNA, LNP-S, preservative free 05/28/2021,09/26/2020,08/29/2020 Pfizer (age 5-11) Bivalent, COVID-19 04/08/2022 Pneumococcal conjugate 20 va lent (Prevnar 20, PCV 20) 2mo and older 05/16/2022 Tdap Tetanus diptheria acell ular pertussis (Boostrix; Adacel) 7yo and older 05/16/2022 Zoster recombinant (Shingrix ) 19yo and older 10/01/2022,05/16/2022 Surgical History Surgery Date Site/Laterality Comments OTHER SURGICAL HISTORY PROCEDURE: INSERT PALATE IMPLANTS Medical History Medical History Date Comments Acute exacerbation of chroni c obstructive airways disease (CMS/HCC) DX:Acute exacerb ation of chronic obstructive airways disease (HCC) Chronic obstructive lung dis ease (CMS/HCC) DX:Chronic obstructive lung disease (HCC) Pain in knee region after re placement of knee joint DX:Pain in knee region after replacement of knee joint Essential hypertension DX:Essent ial hypertension Chronic gastritis DX:Chronic gas tritis Rash DX:Rash Stage 3a chronic kidney dise ase (CKD) (CMS/HCC) DX:Stage 3a chronic kidney d isease (CKD) ([facility]) Colon cancer screening DX:Colon cancer screening Health care maintenance DX:Healt h care maintenance Seborrheic dermatitis DX:Seborrh eic dermatitis Family History Medical History Relation Name Comments Other: heart condition Brother No Known Problems Father No Known Problems Mother No Known Problems Sister Lung cancer Neg Hx Relation Name Status Comments Brother Alive Father Mother Sister Alive Social History Tobacco Use Types Packs/Day Years [...] file Not on file Not on file Obstetrics History Last Filed Vital Signs Vital Sign Reading Time Taken Comments Blood Pressure 120/70 11/10/2023 4:14 PM EDT Pulse 113 11/10/2023 4:14 PM EDT Temperature - - Respiratory Rate - - Oxygen Saturation - - Inhaled Oxygen Concentration - - Weight 77 kg (169 lb 12.8 oz) 11/10/2023 4:14 PM EDT Height 175.3 cm (5' 9 ) 11/10/2023 4:14 PM EDT Body Mass Index 25.08 11/10/2023 4:14 PM EDT Plan of Treatment Upcoming Encounters Date Type Department Care Team (Late st Contact Info) Description 10/07/2024 2:00 PM EDT Office Visit Adult Medicine [address] [phone] Courtney Combs MD [address] [place] [phone] Health Maintenance Due Date Last Done Comments Cholesterol Screening (Lipid Panel) 07/24/2023 Falls Risk Assessment 07/24/2023 Hepatitis C Screening 07/24/2023 Medicare Annual Wellness Visit 07/24/2023 Social Influencers of Health Screening 07/24/2023 Hypertension/CHF/CAD Annual BMP Blood Test 05/23/2025 05/23/2024 Depression Screening 06/01/2025 06/01/2024 Lung Cancer Screening (Low Dose CT) 07/15/2025 07/15/2024, 07/13/2023 Colorectal Cancer Screening: FIT-DNA (Cologuard) 06/20/2027 06/20/2024 DTaP,Tdap,and Td Vaccines (2 - Td or Tdap) 05/16/2032 05/16/2022 Pneumococcal Vaccine: 65+ Years Completed 05/16/2022, 04/18/2020 Zoster Vaccines Completed 10/01/2022, 05/16/2022 RSV Immunization Patients 60+ Years Old Completed 07/13/2023 Abdominal Aortic Aneurysm (AAA) Screen Completed 11/05/2023, 11/05/2023, 11/05/2023 COVID-19 Vaccine Completed 05/13/2024, 11/2022, 04/08/2022, Additional history exists Influenza Vaccine Completed 05/13/2024, , 03/28/2022, Additional history exists HIB Vaccines Aged Out No longer eligi ble based on patient's age to complete this topic HPV Vaccines Aged Out No longer eligi ble based on patient's age to complete this topic Hepatitis A Vaccines Aged Out No long er eligible based on patient's age to complete this topic Hepatitis B Vaccines Aged Out No long er eligible based on patient's age to complete this topic IPV Vaccines Aged Out No longer eligi ble based on patient's age to complete this topic MMR Vaccines Aged Out No longer eligi ble based on patient's age to complete this topic Meningococcal ACWY Vaccine Aged Out N o longer eligible based on patient's age to complete this topic RSV Immunization Patients Under 20 months Aged Out No longer eligible based on patient's age to complete this topic Varicella Vaccines Aged Out No longer eligible based on patient's age to complete this topic Procedures Procedure Name Priority Date/Time Associated Diagnosis Comments CT LUNG SCREENING Routine 07/15/2024 3:3 5 PM EST History of smoking US ABDOMINAL AORTA REAL TIME SCREEN STUDY AAA Routine 11/05/2023 8:06 AM EDT Encounter for screening for cardiovascular disorders from Last 3 Months or Most Recently Relevant to Health Maintenance Results * CT Lung Screening (07/15/2024 3:35 PM EST) Anatomical Region Laterality Modality Chest Computed Tomogra phy 07/23/2024 7:36 AM EST Impressions 07/23/2024 7:54 AM EST Severe underlying emphysema. Irregular thickening involving a cyst in the superior segment of the right lower lobe. This may have increased. Based upon the new LUNG RADS classification criteria for atypical pulmonary cysts with new or increasing opacity warrant a classification of 4b with a recommendation for appropriate diagnostic evaluation including diagnostic chest CT with or without contrast, PET/CT should be considered. ??I favor PET/CT. ??Please note there was significant motion artifact on the previous study LUNG RADS: Lung-RADS 4B: VERY SUSPICIOUS S Modifier (Significant or Potentially Significant Findings): None present No suspicious nonpulmonary findings. RECOMMENDATIONS: PET/CT; consider tissue sampling; refer for further clinical evaluation. -------- FINAL REPORT -------- Dictated By: Eagle Gomez Dictated Date: 07/23/2024 07:36 ET Assigned Physician: Eagle Gomez Reviewed and Electronically Signed By: Eagle Gomez Signed Date: 07/23/2024 07:54 ET Workstation ID: [id number] Transcribed By: Self Edit Transcribed Date: 07/23/2024 07:36 ET Narrative 07/23/2024 7:54 AM EST EXAMINATION: CT CHEST WITHOUT CONTRAST LUNG CANCER SCREENING, LOW DOSE CLINICAL INFORMATION: Lung cancer screening. ??Former smoker COMPARISON: Portions of previous 07/10/2023 ?? TECHNIQUE: Multidetector CT. Examination of the chest. Examination of the chest without IV contrast. Reformatting in the coronal and sagittal planes. Device: [employer] DLP: 195 mGy-cm CTDI: 4.89 Dose optimization was performed including the use of low-dose iterative reconstruction technique with automatic exposure control based on patient size. Type of contrast: None Volume of IV contrast: None Volume of contrast discarded: 0 mL FINDINGS: LUNG: There is no abnormality of the trachea. Minor linear secretions in the left mainstem bronchus and left lower lobe bronchus. There is thickening of segmental airways greatest in the right lower lobe. No focal pneumonia. ?? LUNG NODULES: There is a complex cystic abnormality in the most superior aspect of the right lower lobe with irregular margins. This may have been present previously but due to motion direct comparison is difficult. Individual nodular components measure up to 0.8 cm (3/115). I suspect interval worsening. No other new suspicious mass or nodule. OTHER PULMONARY: ??Severe centrilobular emphysema with cysts. There are some reticular opacities greatest in the dependent right lower lobe. No honeycomb formation. MEDIASTINUM: ??No definite change in the right thyroid nodule. The left brachiocephalic vein and SVC are small caliber. There are no enlarged lymph nodes. CARDIAC: The heart is not enlarged. No pericardial fluid or thickening ?? There are mild coronary calcifications. VASCULAR: The main pulmonary artery is top normal. ?? PLEURA: There is no pleural fluid or pneumothorax ?? AXILLA/CHEST WALL: There are no enlarged axillary lymph nodes. No chest wall mass demonstrated ?? VISUALIZED UPPER ABDOMEN: ??No suspicious abnormality on limited assessment of the visualized upper abdomen MUSCULOSKELETAL: No suspicious focal bony lesion demonstrated. ??Mild compression deformity superior endplate in the region of T10. Jess Barton MD IMG CT PROCEDURES * US ABDOMINAL AORTA REAL TIME SCREEN STUDY AAA (11/05/2023 8:06 AM EDT) Anatomical Region Laterality Modality Ultrasound 10/29/2023 2:39 PM EDT Narrative 11/05/2023 9:59 AM EDT History: Screening for abdominal aortic aneurysm. Ultrasound of the abdominal aorta: The abdominal aorta is normal in course, caliber and configuration. Proximal aortic AP diameter is 2.2 cm maximum. Mid aortic diameter is 1.7 cm, and distal aortic diameter is 1.0 cm. The common iliac arteries are normal in caliber as well. IMPRESSION: Negative screening examination for abdominal aortic aneurysm. Procedure Note Mitch Armenta MD - 02/15/2024 History: Screening for abdominal aortic aneurysm. Ultrasound of the abdominal aorta: The abdominal aorta is normal incourse, caliber and configuration. Proximal aortic AP diameter is 2.2 cm maximum. Mid aorticdiameter is 1.7 cm, and distal aortic diameter is 1.0 cm. The common iliac arteries are normalin caliber as well. IMPRESSION: Negative screening examination for abdominal aortic aneurysm. Courtney Combs MD IMG US PRO CEDURES from Last 3 Months or Most Recently Relevant to Health Maintenance Care Teams Evaluation Assistant Relationship Specialty Start Date End Date Courtney Combs MD [address] [place] [id number] PCP - General 04/01/23
--- OUTSIDE RECORDS SUMMARY | 2024-07-27 12:54 | XMS_ITS | Encounter Summary ---
Author Organization [facility] Address [address] [place] [address] 7 [place] [address] Care Team Providers Care Rolloff Driver Name Role Phone Josefina Pandey MD Primary Care Provide r Reason for Visit * Reason Onset Date Comments Medication Question 03/09/2023 Encounter Details Date Type Department Care Team ([facility] st Contact Info) Description 03/09/2023 Telephone [facility] MEDICINE [address] [place], [place] [phone] Josefina Pandey MD [address] [place] [address] Medication Question Social History Tobacco Use Types Packs/Day Years [...] encounter Miscellaneous Notes * Telephone Encounter - Lilliam Carver RN - 03/10/2023 3:01 PM EDT Return call to the pt regarding the previous message . Pt was advised per the prior message that the prescription was changed to Advair and that the co pay would be around $ 27 , not around $119 as with the Symbicort . Pt asked this RN to please call [facility] his pharmacy to check . Patric , pharmacist at [facility] stated that the pt is in the coverage gap with his insurance , and will need to pay the $ 119.20 co pay for his inhaler , either brand name . Per [facility] pharmacy the pt may qualify for a secondary insurance .Pt was advised of this ,and was advised to call Nayla in the insurance department at [facility] ( ) to see if he may qualify for a secondary insurance to help with his medication co pays . Pt verbalized understanding ,and agrees with the plan . Will route this message to Dr. Cerda for review. * Telephone Encounter - Meenu Funes - 03/09/2023 3:06 PM EDT Tc from patient requesting a call back, in regards to inhalers. States medications are getting moreand more expensive and patient will like to discuss oxygen options. Patient speaks icelandic. documented in this encounter Plan of Treatment Not on file documented as of this encounter Visit Diagnoses Not on filedocumented in this encounter Care Teams Rolloff Driver Relationship Specialty Start Date End Date Josefina Pandey MD [address] [place] [address] PCP - General Family Medicine 11/05/20 documented as of this encounter
--- OUTSIDE RECORDS SUMMARY | 2024-07-27 12:54 | XMS_ITS | Encounter Summary ---
Author Organization [employer] Address [address] [facility] [address] [place] [address] Care Team Providers Care Sash Installer Name Role Phone Josefina Pandey MD Primary Care Provide r Reason for Visit * Reason Comments Med Refill Encounter Details Date Type Department Care Team ([facility] st Contact Info) Description 07/02/2024 Refill [facility] [address] [place], [place] [phone] Josefina Pandey MD [address] [place] [address] Right tennis elbow; Tenosynovitis of left hand Social History Tobacco Use Types Packs/Day Years [...] documented as of this encounter Visit Diagnoses Diagnosis Right tennis elbow Tenosynovitis of left hand documented in this encounter Additional Health Concerns Assessment Noted Time PHQ-9 Depression Total Score: 9 06/01/20 24 10:07 AM EST documented as of this encounter Care Teams Sash Installer Relationship Specialty Start Date End Date Josefina Pandey MD [address] [place] [phone] PCP - General Family Medicine 11/05/20 documented as of this encounter
--- OUTSIDE RECORDS SUMMARY | 2024-07-27 12:54 | XMS_ITS | Encounter Summary ---
Author Organization [facility] Address [address] [place] [address] Care Team Providers Care Computer Art Instructor Name Role Phone Courtney Combs MD Primary Care Prov ider Reason for Referral * Imaging (Routine) - Closed Specialty Diagnoses / Procedures Referred By Sukhwinder dimas Referred To Contact Radiology Diagnoses History of smoking Procedures CT Lung Screening Jess Barton MD [address] [phone] Referral ID Status Reason Start Date Expiration Date Visits Re quested Visits Authorized [id number] Closed 06/28/2024 06/28/2025 1 1 Reason for Visit * Imaging (Routine) - Closed Specialty Diagnoses / Procedures Referred By Sukhwinder dimas Referred To Contact Radiology Diagnoses History of smoking Procedures CT Lung Screening Jess Barton MD [address] [phone] Referral ID Status Reason Start Date Expiration Date Visits Re quested Visits Authorized [id number] Closed 06/28/2024 06/28/2025 1 1 Encounter Details Date Type Department Care Team (Latest Contact Info) Description 07/15/2024 3:18 PM EST - 07/15/2024 11:59 PM EST Hospital Encounter [facility] CT Scan [address] [place] [address] History of smoking Discharge Disposition: Home or Self Care Social History Tobacco Use Types Packs/Day Years [...] on file documented as of this encounter Medications at Time of Discharge Medication Sig Dispensed Refills Start Date End Date albuterol HFA (PROAIR HFA ; PROVENTIL HFA ; VENTOLIN HFA) 90 mcg/actuation inhaler Inhale 2 puffs every 4 (four) hours if needed. dfyleapzcp-qtktuguw-zxqen terol (Breztri Aerosphere) 160-9-4.8 mcg/actuation HFA aerosol inhaler inhaler Inhale 17.7778 puffs. 07/13/2023 fluticasone-umeclidinium- vilanterol (Trelegy Ellipta) 200-62.5-25 mcg inhaler Inhale 1 Puff into the lungs daily. 11/10/2023 hydroCHLOROthiazide 12.5 mg tablet Take 1 tablet (12.5 mg total) by mouth 1 (one) time each day. hydrocortisone 0.5 % topical cream Apply 2 g topically 2 times daily. 10/29/2023 hydrocortisone 2.5 % cream Apply topically 2 (two) times a day. lansoprazole (PREVACID SOLUTAB) 30 mg dispersible tablet lansoprazole (PREVACID SOLUTAB) 30 mg dispersible tablet Take by mouth. loratadine (CLARITIN) 10 mg tablet Take 1 tablet (10 mg total) by mouth 1 (one) time each day. losartan (COZAAR) 100 mg tablet Take 1 tablet (100 mg total) by mouth 1 (one) time each day. Oxygen Therapy (O2) gas Inhale into the lungs. 2L tamsulosin (FLOMAX) 0.4 mg 24 hr capsule Take 1 capsule (0.4 mg total) by mouth 1 (one) time each day. documented as of this encounter Discharge Disposition Disposition Code Departure Means Destination Home or Self Care documented in this encounter Plan of Treatment Upcoming Encounters Date Type Department Care Team (Late st Contact Info) Description 10/07/2024 2:00 PM EDT Office Visit [facility] [address] [place] [address] Courtney Combs MD [address] [place] [phone] documented as of this encounter Procedures Procedure Name Priority Date/Time Associated Diagnosis Comments CT LUNG SCREENING Routine 07/15/2024 3:3 5 PM EST History of smoking documented in this encounter Results * CT Lung Screening (07/15/2024 3:35 [...] Signed Date: 07/23/2024 07:54 ET Workstation ID: [id number] Transcribed By: Self Edit Transcribed Date: 07/23/2024 07:36 ET Narrative 07/23/2024 7:54 AM EST EXAMINATION: CT CHEST WITHOUT CONTRAST LUNG CANCER SCREENING, LOW DOSE CLINICAL INFORMATION: Lung cancer screening. ??Former smoker COMPARISON: Portions of previous 07/10/2023 ?? TECHNIQUE: Multidetector CT. Examination of the chest. Examination of the chest without IV contrast. Reformatting in the coronal and sagittal planes. Device: Revolution Armstrong DLP: 195 mGy-cm CTDI: 4.89 Dose optimization [...] T10. Jess Barton MD IMG CT PROCEDURES documented in this encounter Visit Diagnoses Diagnosis History of smoking Personal history of tobacco use, presenting hazards to health documented in this encounter Care Teams Computer Art Instructor Relationship Specialty Start Date End Date Courtney Combs MD [address] [place] [address], [place] [address] PCP - General 04/01/23 documented as of this encounter
--- OUTSIDE RECORDS SUMMARY | 2024-07-27 12:54 | XMS_ITS | Clinical Summary ---
Author Organization [employer] Address [address] [facility] [address] [place] [address] Care Team Providers Care [employer] Name Role Phone Josefina Pandey MD Primary Care Provide r Allergies No known active allergies Medications loratadine (Claritin) 10 MG tabletIndications :Chronic obstructive pulmonary disease, unspecified COPD type (CMS/HCC) Take 1 tablet (10 mg) by mouth in the morning. 30 tablet 2 3 Active azithromycin (Zithromax) 250 MG tabletIndications :Acute exacerbation of chronic obstructive airways disease (CMS/HCC) Take 2 tabs PO daily x 1d then 1 tab PO daily on D2 to D5 6 tablet 3 Active albuterol 108 (90 Base) MCG/ACT inhalerIndication s:Chronic obstructive pulmonary disease, unspecified COPD type (CMS/HCC) INHALE 2 PUFFS BY MOUTH EVERY 4 HOURS NEEDED 8.5 g 1 3 Active Breztri Aerosphere 160-9-4.8 MCG/ACT aerosol Inhale 1 puff 2 times daily. 10.7 g 4 Active ketoconazole (NIZOral) 2 % shampooIndication s:Seborrheic dermatitis apply by topical route 2-3 times weekly to the affected area(s), lather, leave in place for 5 minutes, and then rinse off with water 120 mL 2 4 Active hydrocortisone 2.5 % creamIndications: Seborrheic dermatitis Apply topically 2 times daily. 28 g 11 4 Active losartan (Cozaar) 100 MG tabletIndications :Essential hypertension TAKE 1 TABLET BY MOUTH EVERY DAY 90 tablet 4 Active hydroCHLOROthiazi de 12.5 MG tabletIndications :Essential hypertension TAKE 1 TABLET BY MOUTH EVERY DAY 90 tablet 4 Active lansoprazole (Prevacid) [address] capsuleIndication s:Chronic gastritis without bleeding, unspecified gastritis type Take 1 capsule (30 mg) by mouth before breakfast. Do not crush or chew. 90 capsule 4 08/31/19 25 Active tamsulosin (Flomax) 0.4 MG 24 hr capsuleIndication s:Benign prostatic hyperplasia (BPH) with straining on urination TAKE 1 CAPSULE BY MOUTH EVERY MORNING 90 capsule 4 Active mometasone (Elocon) 0.1 % ointmentIndicatio ns:Dermatitis Apply topically Once per day. 15 g 1 4 06/01/20 25 Active ciclopirox (Penlac) 8 % solutionIndicatio ns:Onychomycosis Apply topically at bedtime. 6 mL 1 4 Active Active Problems Problem Noted Date Diagnosed Date Right tennis elbow 06/01/2024 Tenosynovitis of left hand 06/01/2024 Dermatitis 06/01/2024 Rhinitis 02/26/2024 Seborrheic dermatitis 04/03/2023 Colon cancer screening 10/22/2022 Health care maintenance 10/22/2022 Acute exacerbation of chronic obstructive airway s disease 10/17/2022 Chronic obstructive lung disease 10/17/2022 Assessment & Plan (06/03/2024 4:28 PM EST): Continue to follow with specialist Assessment & Plan (02/26/2024 11:27 AM EDT): Continue to follow with pulmonology Assessment & Plan (01/08/2023 1:15 PM EDT): Keep pulmonary appointment 01/21/23 Albuterol inhaler 2 puffs ebvery 4-6hrs C/w symbicort BID Avoid triggers Pain in knee region after replacement of knee cm int 10/17/2022 Essential hypertension 10/17/2022 Assessment & Plan (06/03/2024 4:29 PM EST): See below: - Aerobic exercise to reduce BP. Initial goal of 30 min walk 3-5x/week. Increase as tolerated. - low-sodium diet (goal: <2g/day) and heart healthy diet such as DASH to reduce BP and prevent ASCVD. - Home BP monitoring 1-2 x day with goal of <140/90. - Seek immediate medical attention for chest pain, palpitations, SOB, syncope, or sudden changes in mental status. - Do not change or discontinue current prescriptions without first consulting health care provider Assessment & Plan (02/26/2024 11:27 AM EDT): - Aerobic exercise to reduce BP. Initial goal of 30 min walk 3-5x/week. Increase as tolerated. - low-sodium diet (goal: <2g/day) and heart healthy diet such as DASH to reduce BP and prevent ASCVD. - Home BP monitoring 1-2 x day with goal of <140/90. - Seek immediate medical attention for chest pain, palpitations, SOB, syncope, or sudden changes in mental status. - Do not change or discontinue current prescriptions without first consulting health care provider Assessment & Plan (04/03/2023 11:18 AM EDT): - Aerobic exercise to reduce BP. Initial goal of 30 min walk 3-5x/week. Increase as tolerated. - low-sodium diet (goal: <2g/day) and heart healthy diet such as DASH to reduce BP and prevent ASCVD. - Home BP monitoring 1-2 x day with goal of <140/90. - Seek immediate medical attention for chest pain, palpitations, SOB, syncope, or sudden changes in mental status. - Do not change or discontinue current prescriptions without first consulting health care provider Assessment & Plan (01/08/2023 1:13 PM EDT): - Aerobic exercise to reduce BP. Initial goal of 30 min walk 3-5x/week. Increase as tolerated. - low-sodium diet (goal: <2g/day) and heart healthy diet such as DASH to reduce BP and prevent ASCVD. - Home BP monitoring 1-2 x day with goal of <140/90. - Seek immediate medical attention for chest pain, palpitations, SOB, syncope, or sudden changes in mental status. - Do not change or discontinue current prescriptions without first consulting health care provider Assessment & Plan (10/22/2022 2:05 PM EDT): Maintenance: BMP: up to date Lipid Panel: up to date - Aerobic exercise to reduce BP. Initial goal of 30 min walk 3-5x/week. Increase as tolerated. - low-sodium diet (goal: <2g/day) and heart healthy diet such as DASH to reduce BP and prevent ASCVD. - Home BP monitoring 1-2 x day with goal of <140/90. - Seek immediate medical attention for chest pain, palpitations, SOB, syncope, or sudden changes in mental status. - Do not change or discontinue current prescriptions without first consulting health care provider Chronic gastritis 10/17/2022 Rash 10/17/2022 Stage 3a chronic kidney disease 10/17/2022 Assessment & Plan (02/26/2024 11:27 AM EDT): Blood work ordered possibly referral to nephrology after results Encounters Date Type Department Care Team Description 07/02/2024 Refill [facility] [address] [place] [phone] Josefina Panedy MD Right tennis elbow; Tenosynovitis of left hand 06/01/2024 10:00 AM EST Office Visit [address] [phone] Josefina Pandey MD Essential hypertension (Primary Dx); Right tennis elbow; Tenosynovitis of left hand; Chronic obstructive pulmonary disease, unspecified COPD type (CMS/HCC); Colon cancer screening; Screening for colon cancer; Chronic gastritis without bleeding, unspecified gastritis type; Benign prostatic hyperplasia (BPH) with straining on urination; Dermatitis; Onychomycosis 06/01/2024 Travel 05/30/2024 Telephone [facility] [address] [place] [phone] Nabil Singh MA Chart Prep 05/18/2024 Patient Outreach [address] [address] Josefina Pandey MD Pre-visit Planning (Unable to complete annual screening over the phone, will complete in office) 05/13/2024 2:05 PM EST Nurse Only [facility] [address] [place] [phone] Charley Ferguson LPN Encounter for immunization (Primary Dx) 05/13/2024 1:30 PM EST Office Visit [facility] [address] [place] [address] Rome Craven MD EIC (epidermal inclusion cyst) (Primary Dx); Seborrheic dermatitis 05/13/2024 Travel 05/09/2024 Telephone [facility] [address], [place] [phone] Josefina Pandey MD Medication Question 05/09/2024 Refill [facility] [address] [place] [address] Josefina Pandey MD Chronic obstructive pulmonary disease, unspecified COPD type (CMS/HCC); Essential hypertension 04/26/2024 Telephone [facility] [address] [place] [phone] Josefina Pandey MD Appointment Request from Last 3 Months Immunizations Name Administration Dates Next Due Influenza High-dose Quadriva lent Preservative Free 04/03/2023,03/28/2022,04/11/2021,04/18 Influenza, High Dose Seasona l, Preservative Free 05/13/2024 Influenza, IIV3, injectable 05/10/2012 Pfizer Covid-19 Vaccine 12+ 05/13/2024, Pneumococcal Conjugate PCV 20 05/16/2022 Pneumococcal Polysaccharide PPSV23 04/18/2020 RSV Adjuvant 07/13/2023 Tdap 05/16/2022 Zoster, Recombinant 10/01/2022,05/16/2022 Social History Tobacco Use Types Packs/Day Years [...] Orientation Straight 04/28/2022 10 :37 AM EDT Last Filed Vital Signs Vital Sign Reading Time Taken Comments Blood Pressure 121/84 06/01/2024 10:41 AM EST Pulse 89 06/01/2024 10:41 AM EST Temperature 36.2 ??C (97.1 ??F) 06/01/2024 10:[address] Respiratory Rate 23 06/01/2024 10:06 AM EST Oxygen Saturation 100% 06/01/2024 10:41 AM EST Inhaled Oxygen Concentration - - Weight 78.2 kg (172 lb 6.4 oz) 06/01/2024 10:06 AM EST Height 175.3 cm (5' 9 ) 05/13/2024 12:56 PM EST Body Mass Index 25.46 05/13/2024 12:56 PM EST Plan of Treatment Health Maintenance Due Date Last Done Comments CT Colonography 1949 FIT 1949 FOBT 1950 Sigmoidoscopy 1950 Hepatitis C Screening 1968 Colonoscopy 01/02/2024 01/01/2021 Colorectal Cancer Screening 06/21/2024 Depression Monitoring (PHQ-9) 11/30/2024 06/01/2024, 06/01/2024 Alcohol/Substance Use Screening 06/01/2025 06/01/2024 Depression Screening 06/01/2025 06/01/2024, 06/01/20 SDOH Screening 06/01/2025 06/01/2024 Tobacco Screening 06/01/2025 06/01/2024 FIT DNA/Cologuard 06/20/2027 06/20/2024 Lipid Panel 05/23/2029 05/23/2024, 10/0 06/2020, 08/01/2020 DTaP/Tdap/Td Vaccines (2 - Td or Tdap) 05/16/2032 05/16/2022 Pneumococcal Vaccine: 50+ Years Completed 05/16/2022, 04/18/2020 Zoster Vaccines Completed 10/01/2022, 05/16/2022 RSV Patients and Patients Aged 60 years or older Completed 07/13/2023 COVID-19 Vaccine Completed 05/13/2024, 11/2022, 04/08/2022, Additional [...] patient's age to complete this topic Meningococcal Vaccine Aged Out No janelle jesus manuel eligible based on patient's age to complete this topic RSV under 20 months Aged Out No longe r eligible based on patient's age to complete this topic Rotavirus Vaccines Aged Out No longer eligible based on patient's age to complete this topic Procedures Procedure Name Priority Date/Time Associated Diagnosis Comments LAB COLOGUARD?? COLON CANCER SCREEN Routine 06/20/2024 12:05 PM EST Screening for colon cancer TSH W/REFLEX TO FT4 Routine 05/23/2024 1 1:48 AM EST Essential hypertension Stage 3a chronic kidney disease (CMS/HCC) HEMOGLOBIN A1C Routine 05/23/2024 11:48 AM EST Essential hypertension Stage 3a chronic kidney disease (CMS/HCC) LIPID PANEL WITH REFLEX TO DIRECT LDL Routine 05/23/2024 11:48 AM EST Essential hypertension Stage 3a chronic kidney disease (CMS/HCC) COMPREHENSIVE METABOLIC PANEL Routine 05/23/2024 11:48 AM EST Essential hypertension Stage 3a chronic kidney disease (CMS/HCC) CBC WITH AUTO DIFFERENTIAL Routine 05/23/2024 11:48 AM EST Essential hypertension Stage 3a chronic kidney disease (CMS/HCC) HM COLONOSCOPY Routine 01/01/2021 from Last 3 Months or Most Recently Relevant to Health Maintenance Results * Cologuard?? colon cancer screening (06/20/2024 12:05 PM EST) Cologuard Result Negative Negative 06/26/20 24 6:21 PM EST Sequence (CLIA #:[id number]) Comment: NEGATIVE TEST RESULT. A negative Cologuard result indicates a low likelihood that a colorectal cancer (CRC) or advanced adenoma (adenomatous polyps with more advanced pre-malignant features) ??is present. The chance that a person with a negative Cologuard test has a colorectal cancer is less than 1 in 1500 (negative predictive value >99.9%) or has an ??advanced adenoma is less than ??5.3% (negative predictive value 94.7%). These data are based on a prospective cross-sectional study of 10,000 individuals at average risk for colorectal cancer who were screened with both Cologuard and colonoscopy. (Sasha Roberts al, N Engl J Med 2014;370(14):1286- 1297) The normal value (reference range) for this assay is negative. COLOGUARD RE-SCREENING RECOMMENDATION: Periodic colorectal cancer screening is an important part of preventive healthcare for asymptomatic individuals at average risk for colorectal cancer. ??Following a negative Cologuard result, the [place] [employer] Society and U.S. Multi-Society Task Force screening guidelines recommend a Cologuard re-screening interval of 3 years. References: [place] [employer] Guideline for Colorectal Cancer Screening: https://www.cancer.org/cancer/fbyyu-lduwos-ahjtzk/ljmonlqtk-mlypxzqmf-psqdfsw/ac s-rec ommendations.html.; Brian DK, Shabnam GATICA, Devika OliverosK, Colorectal Cancer Screening: Recommendations for Physicians and Patients from the U.S. Multi-Society Task Force on Colorectal Cancer Screening , Am J Gastroenterology 2017; 112:0143-1443. TEST DESCRIPTION: Composite algorithmic analysis of stool DNA-biomarkers with hemoglobin immunoassay. ?? Quantitative values of individual biomarkers are not reportable and are not associated with individual biomarker result reference ranges. Cologuard is intended for colorectal cancer screening of adults of either sex, 45 years or older, who are at average-risk for colorectal cancer (CRC). Cologuard has been approved for use by the U.S. FDA. The performance of Cologuard was established in a cross sectional study of average-risk adults aged 50-84. Cologuard performance in patients ages 45 to 49 years was estimated by sub-group analysis of near-age groups. Colonoscopies performed for a positive result may find as the most clinically significant lesion: colorectal cancer [4.0%], advanced adenoma (including sessile serrated polyps greater than or equal to 1cm diameter) [20%] or non- advanced adenoma [31%]; or no colorectal neoplasia [45%]. These estimates are derived from a prospective cross-sectional screening study of 10,000 individuals at average risk for colorectal cancer who were screened with both Cologuard and colonoscopy. (Sasha Larsen, N Engl J Med 2014;370(14):8402-3521.) Cologuard may produce a false negative or false positive result (no colorectal cancer or precancerous polyp present at colonoscopy follow up). A negative Cologuard test result does not guarantee the absence of CRC or advanced adenoma (pre-cancer). The current Cologuard screening interval is every 3 years. ([place] [employer] and U.S. Multi-Society Task Force). Cologuard performance data in a 10,000 patient pivotal study using colonoscopy as the reference method can be accessed at the following location: www.[employer].BigBarn/results. Additional description of the Cologuard test process, warnings and precautions can be found at www.Backupifyrd.com. Stool specimen (specimen) 06/20/2024 12:05 PM EST 06/21/2024 12:06 PM EST us Josefina Garcia MD LAB MOLECULAR DIAGNOS TICS ORDERABLES Final Result Performing Organization Address City/[facility]/ZIP Co de Phone Number Sequence (CLIA #:[id number]) [address] [place] [address], * TSH with Reflex to Free T4 (05/23/2024 11:48 AM EST) TSH reflex Free T4 2.33 0.32 - 4.0 uIU/mL [facility] Blood 05/23/2024 11:4 8 AM EST 05/23/2024 1:10 PM EST Josefina Garcia MD LAB BLOOD ORDERABLES Final Result Performing Organization Address City/[facility]/ZIP Co de Phone Number [facility] [address] [place] [phone] * Lipid Panel with Reflex to Direct LDL (05/23/2024 11:48 AM EST) Triglycerides 55 <150 mg/dL [facility] Comment:Desirable Triglyceri de: less than 150 mg/dLBorderline High Triglyceride 150-199 mg/dLHigh Triglyceride: 200-499 mg/dLVery High Triglyceride: greater than or equal to 5OO mg/dL Cholesterol 196 <200 mg/dL [facility] Comment:Desirable Cholestero l: less than 200 mg/dLBorderline High Cholesterol: 200-239 mg/dLHigh Cholesterol: greater than 239 mg/dL LDL Cholesterol Calculated 94 <100 mg/dL [facility] Comment:Desirable LDL: less than 100 mg/dLNear Optimal/Above Optimal LDL: 110- 129 mg/dLBorderline High LDL: 130-159 mg/dLHigh LDL: 160-189 mg/dLVery High LDL: greater than or equal to 190 mg/dL HDL Cholesterol 91 >40 mg/dL [facility] Comment:Desirable HDL: great er than 40 mg/dL Note: This HDL assay may give artificially low results in patients with liver disease. Blood 05/23/2024 11:4 8 AM EST 05/23/2024 1:10 PM EST us Josefina Garcia MD LAB BLOOD ORDERABLES Final Result [facility] [address] [place] [phone] * (ABNORMAL) CBC auto differential (05/23/2024 11:48 AM EST) White Blood Count 7.1 4.8 - 10.8 X10*3/uL [facility] Red Blood Count 4.97 4.60 - 5.80 X10*6/uL [facility] Hemoglobin 14.9 14.0 - 18.0 g/dl [facility] Hematocrit 45.8 42.0 - 52.0 % [facility] Mean Corpuscular Volume 92.2 80.0 - 98.0 fL [facility] Mean Corpuscular Hemoglobin 30.0 27.0 - 33.0 pg [facility] Mean Corpuscular HGB Conc 32.5 31.0 - 36.0 g/dl [facility] Red Cell Distribution Width 16.8(H) 11.0 - 16.0 % [facility] Platelet Count 319 160 - 400 X10*3/uL [facility] Mean Platelet Volume 10.2 9.4 - 12.4 fL [facility] Neutrophils Percent Auto 64.3 45 - 73 % [facility] Imm Gran Pct Auto 0.3 0.0 - 0.4 % [facility] Lymphocytes Percent Auto 19.6(L) 20 - 40 % [facility] Monocytes Percent Auto 8.7 2 - 11 % [facility] Eosinophils Percent Auto 6.0(H) 0 - 4 % [facility] Basophils Percent Auto 1.1 0 - 2 % [facility] NRBC Pct Auto 0.0 0.0 - 0.2 /100WBC [facility] Neutrophils Absolute Auto 4.5 2.0 - 8.3 x10*3/uL [facility] Imm Gran Abs Auto 0.02 0.00 - 0.03 X10*3/uL [facility] Lymphocytes Absolute Auto 1.4 1.2 - 4.9 X10*3/uL [facility] Monocytes Absolute Auto 0.6 0.1 - 1.2 X10*3/uL [facility] Eosinophils Absolute Auto 0.4 0.0 - 0.4 X10*3/uL [facility] Basophils Absolute Auto 0.1 0.0 - 0.2 X10*3/uL [facility] NRBC Abs Auto 0.000 0.0 - 0.012 X10*3/uL [facility] Blood Venous blood specimen / Unknown 05/23/2024 11:48 AM EST 05/23/2024 1:14 PM EST us Josefina Garcia MD LAB BLOOD ORDERABLES Final Result [facility] [address], [place] [phone] * Hemoglobin A1c (05/23/2024 11:48 AM EST) Hemoglobin A1c 5.2 <6.0 % [facility] Comment:Hemoglobin A1C Refer ence Range Adults: 4.8 - 6.0 % Non diabetic: < 6.0 % Goal: < 7.0 %Additional Action Suggested: > 8.0 %Note: Hemoglobin A1c results are invalid for patients with abnormal amounts of HbF. Blood transfusions may impact the HbA1c concentration in the patient sample. Estimated Average Glucose 103 mg/dL [facility] Comment:eAG = Estimated ave rage glucose which is %A1C expressed asaverage glucose, using the formula of the Z5Q-FrylqvjOvzyhyt Glucose study (ADAG), Diabetes Care, Vol.31,#8,Jan. 2007 Blood Venous blood specimen / Unknown 05/23/2024 11:48 AM EST 05/23/2024 1:14 PM EST us Josefina Garcia MD LAB BLOOD ORDERABLES Final Result [facility] [address] [place] [phone] * (ABNORMAL) Comprehensive Metabolic Panel (05/23/2024 11:48 AM EST) Sodium 138 135 - 145 mmol/L [facility] Potassium 4.0 3.3 - 5.1 mmol/L [facility] Chloride 101 96 - 108 mmol/L [facility] Carbon Dioxide 27 22 - 29 mmol/L [facility] Anion Gap 14 12 - 20 [facility] Urea Nitrogen (BUN) 17(H) 9 - 16 mg/dL [facility] Creatinine, Serum 1.26 0.5 - 1.4 mg/dL [facility] Estimated Glomerular Filt Rate 56 [facility] Comment:Chronic Kidney Disea se: Estimated GFR < 60 mL/min/1.67l6Smyvyz Kidney Disease: Estimated GFR < 15 mL/min/1.73m2 Glucose 93 60 - 115 mg/dL [facility] Calcium 9.4 8.4 - 10.2 mg/dL [facility] Bilirubin, Total 1.0 0.0 - 1.0 mg/dL [facility] Aspartate Amino Transferase 26 5 - 37 U/L [facility] Alanine Aminotransferase 22 0 - 40 U/L [facility] Total Protein 7.1 6.5 - 8.0 g/dL [facility] Albumin Level 4.2 3.5 - 5.0 g/dL [facility] Alkaline Phosphatase 52 39 - 117 U/L [facility] Blood Venous blood specimen / Unknown 05/23/2024 11:48 AM EST 05/23/2024 1:10 PM EST us Josefina Garcia MD LAB BLOOD ORDERABLES Final Result Performing Organization Address City/State/[facility] Co de Phone Number [facility] [address] [place] [address] [phone] * Hm Colonoscopy (01/01/2021) us Historical Provider HEALTH MAINTENANCE Final Result from Last 3 Months or Most Recently Relevant to Health Maintenance Insurance [facility] MEDICARE ADVANTAGE HMO Care Teams [employer] Relationship Specialty Start Date End Date Josefina Pandey MD [address] [place] [phone] PCP - General Family Medicine 11/05/20
--- OUTSIDE RECORDS SUMMARY | 2024-07-27 12:54 | XMS_ITS | Encounter Summary ---
Author Organization [facility] Address [address] [place] [address] Care Team Providers Care Extension Work Instructor Name Role Phone Courtney Combs MD Primary Care Prov ider Reason for Visit * Reason Onset Date Comments Results 07/25/2024 Annual Lung Scre ening- Suspicious findings Encounter Details Date Type Department Care Team ([facility] st Contact Info) Description 07/25/2024 Telephone Lung Screening Program - [place] [address] [place] [address] Carmel Benitez MA Results (Annual Lung Screening- Suspicious findings) Social History Tobacco Use Types Packs/Day Years [...] as of this encounter Progress Notes * Carmel Benitez MA - 07/25/2024 11:39 AM EST This patient had their annual Low Dose CT scan on 07/15/2024 with a Lung RADS Score of a 4B. We will be presenting this patient's case at our Multidisciplinary Thoracic Tumor Board Conference on Thursday, August 01, 2024. The recommendation from this conference will be communicated to both you and the patient. Please let us know if you would be interested in attending this conference virtually. Screening patients are typically presented between 12-12:20pm. Please reach out to Rosaura Mcdonald [facility] Coordinator to request the Teams information. documented in this encounter Plan of Treatment Upcoming Encounters Date Type Department Care Team (Late st Contact Info) Description 10/07/2024 2:00 PM EDT Office Visit Adult Medicine [address] [address] Courtney Combs MD [address] [place] [phone] documented as of this encounter Visit Diagnoses Not on filedocumented in this encounter Care Teams Extension Work Instructor Relationship Specialty Start Date End Date Courtney Combs MD [address] [place] [phone] PCP - General 04/01/23 documented as of this encounter
== END 2024-07-27 10:48 | disposition home or self-care (01) ==
LOC: HO.HOSX 10:47
DX: M75.21 Bicipital tendinitis, right shoulder (principal); M25.511 Pain in right shoulder
CPT/HCPCS: 73030; 99212

== ENCOUNTER → 2024-07-27 11:28 | Outpatient (BNV) | payer MEDICARE, SELFPAY | PROVIDERS: Visit Provider Radiology Diagnostic Radiology | DX: M25.511 Pain in right shoulder (principal) | CPT/HCPCS: 73030 ==

== ENCOUNTER 2024-08-18 10:56 | Outpatient (AMB) | payer MEDICARE, SELFPAY ==
[2024-08-18 10:59] VITALS: BP 130/72; PULSE 90; O2SAT 91; BMI 25.0
--- NOTE | 2024-08-18 10:59 | A.OFFVIS_ITS ---
Vital Signs 08/18/24 10:59 Height 5 ft 9 in Weight 169 lb BMI 25.0 BP 130/72 Blood Pressure Location Rt brachial Position Sitting Pulse 90 Pulse Source Doppler Pulse Oximetry (%) 91 L Oxygen Delivery Method Nasal Cannula Oxygen Flow Rate 2 Intake Visit Reasons: copd Pharmacist Per Diem Required: Yes Pharmacist Per Diem Name: Richelle Mcdonald C.L.M Allergies naproxen [From Aleve] Adverse Reaction (Severe, Verified 08/18/24 11:07) rash HPI HPI copd: Details: 74-year-old gentleman, former greater than 40 pack-year smoker with underlying very severe COPD on supplemental oxygen via POC, previously seen at [facility], now referred secondary to insurance reasons. Patient states that he has been using BrezTri and albuterol MDI with reasonable control of his symptoms. Patient continues to participate in pulmonary rehab at [facility]. He has had recent lung cancer screening at [facility] in June of 2023. He denies recent exacerbations. After the last office visit patient has reestablished care at [facility] as his insurance situation has changed again. He also continues to follow-up with [place] lung cancer screening program. [facility] Medical History Exercise hypoxemia COPD (chronic obstructive pulmonary disease) Dyspnea on exertion Asthma Rash CKD (chronic kidney disease), stage III HTN (hypertension) COPD (chronic obstructive pulmonary disease) Surgical History History of esophagogastroduodenoscopy (EGD) (~2013) Hx of colonoscopy (~2013) Hx of hand surgery Family History Family/Other No problems noted. 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 Review of Systems Const Denies daytime sleepiness, Denies excessive sweating, Denies fatigue, Denies fever(s), Denies lethargy, Denies malaise, Denies night sweats, Denies snoring and Denies weight loss Eyes Denies blurry vision and Denies itchy eyes ENT Denies nasal congestion, Denies post nasal drip, Denies sinus pain, Denies sinus pressure and Denies other ( Thrush) Card Denies chest pain, Denies pedal edema, Denies dyspnea, Denies orthopnea and Denies paroxysmal nocturnal dyspnea Resp Denies cough, Denies hemoptysis, Denies excessive phlegm production, Denies dyspnea, Denies snoring and Denies wheezing GI Denies abdominal pain and Denies heartburn Musc Denies myalgias, Denies arthralgias and Denies joint swelling Skin/Breast Denies rash Neuro Denies memory loss and Denies seizure-like activity Psych Denies abnormal sleep pattern, Denies anxiety and Denies memory loss Endo Denies excessive sweating, Denies fatigue and Denies heat intolerance Jamie/Lymph Denies easy bruising Aller/Immun Denies itchy eyes, Denies seasonal rhinorrhea and Denies wheezing Physical Exam Vital Signs: Last Vital Signs Pulse 90 08/18/24 10:59 BP 130/72 08/18/24 10:59 Pulse Ox 91 L 08/18/24 10:59 Oxygen Delivery Method Nasal Cannula 08/18/24 10:59 Oxygen Flow Rate 2 08/18/24 10:59 BMI result Body Mass Index 25.0 Const General: no acute distress and alert Nutritional Appearance: not obese Orientation/consciousness: Other orientation findings ( oriented) HEENT Head: Yes atraumatic Eyes General: appearance normal, both eyes and all related structures Sclerae: sclerae normal EOM: EOMs intact bilaterally Neck Neck: Yes supple Lymphatic: no lymphadenopathy noted Resp Effort & Inspection: normal respiratory effort and no use of accessory muscles Auscultation: clear to auscultation bilaterally Cardio Rate: regular rate Rhythm: regular rhythm Heart sounds: no gallops, no murmurs and no rubs Skin General skin exam: other ( warm) Extrem General: No clubbing, No cyanosis and No edema Assessment & Plan Assessment & Plan (1) COPD (chronic obstructive pulmonary disease): Code(s): J44.9 - Chronic obstructive pulmonary disease, unspecified Category: Medical (2) Supplemental oxygen dependent: Code(s): Z99.81 - Dependence on supplemental oxygen Category: Medical (3) Personal history of nicotine dependence: Code(s): Z87.891 - Personal history of nicotine dependence Category: Medical Plan Patient has switched his care back to [facility] as his insurance situation has changed again. He does continue on BrezTri and albuterol MDI with reasonable control of his symptoms. 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 Coding Level of Care Code Est Pt Level 4 (20868) Diagnoses COPD (chronic obstructive pulmonary disease) J44.9 Supplemental oxygen dependent Z99.81 Personal history of nicotine dependence Z87.891
--- OUTSIDE RECORDS SUMMARY | 2024-08-18 12:13 | XMS_ITS | Encounter Summary ---
Author Organization [facility] Address [address] [place] [address] [address] [place] [address] Care Team Providers Care Nail Professional Name Role Phone Josefina Pandey MD Primary Care Provide r Encounter Details Date Type Department Care Team (Late st Contact Info) Description 03/10/2023 Orders Only [facility] [address] [place] [phone] Provider, MD Constantine Social History Tobacco Use [...] as of this encounter Plan of Treatment Upcoming Encounters Date Type Department Care Team (Late st Contact Info) Description 09/29/2024 11:00 AM EDT Office Visit [facility] [address] [place] [phone] Josefina Pandey MD [address] [place] [address] [phone] documented as of this encounter Procedures Procedure Name Priority Date/Time Associated Diagnosis Comments HM COLONOSCOPY Routine 01/01/2021 documented in this encounter Results * Hm Colonoscopy (01/01/2021) Historical Provider HEALTH MAINTENANCE Final Result documented in this encounter Visit Diagnoses Not on filedocumented in this encounter Care Teams Nail Professional Relationship Specialty Start Date End Date Josefina Pandey MD [address] [place] [address] PCP - General Family Medicine 11/05/20 documented as of this encounter
--- OUTSIDE RECORDS SUMMARY | 2024-08-18 12:13 | XMS_ITS | Clinical Summary ---
Author Organization [facility] [address] [facility] Address [address] [place] [address] Phone Care Team Providers Care Nurse Outreach Case Manager Name Role Phone Courtney Combs MD Primary Care Prov ider Allergies No known active allergies Medications albuterol HFA (PROAIR HFA ; PROVENTIL HFA ; VENTOLIN HFA) 90 mcg/actuation inhaler Inhale 2 puffs every 4 (four) hours if needed. Active budesonide-glyco pyr-formoterol (Breztri Aerosphere) 160-9-4.8 mcg/actuation HFA aerosol inhaler inhaler Inhale 17.7778 puffs. 4 Active hydroCHLOROthiaz edel 12.5 mg tablet Take 1 tablet (12.5 mg total) by mouth 1 (one) time each day. Active hydrocortisone 2.5 % cream Apply topically 2 (two) times a day. Active lansoprazole (PREVACID SOLUTAB) 30 mg dispersible tablet Active loratadine (CLARITIN) 10 mg tablet Take 1 [...] Apply 2 g topically 2 times daily. 4 Active Oxygen Therapy (O2) gas Inhale into the lungs. 2L Active fluticasone-umec lidinium-vilante rol (Trelegy Ellipta) 200-62.5-25 mcg inhaler Inhale 1 Puff into the lungs daily. Active lansoprazole (PREVACID SOLUTAB) 30 mg dispersible tablet Take by mouth. Activ e Active Problems Problem Noted Date Diagnosed Date [...] Description 07/25/2024 Telephone Lung Screening Program - [address] [phone] Carmel Benitez MA Results (Annual Lung Screening- Suspicious findings) 07/15/2024 3:18 PM EST - 07/15/2024 11:59 PM EST Hospital Encounter [facility] CT Scan [address] [place] [address] History of smoking Discharge Disposition: Home or Self Care 07/04/2024 Telephone Lung Screening Program - [place] [address] [facility] [address] [facility] [place] [address] Rosa Elena oHrn MA from Last 3 Months Immunizations Name Administration Dates Next Due Moderna SARS-CoV-2 COVID-19, mRNA, LNP-S, preservative free 05/28/2021,09/26/2020,08/29/2020 Pfizer (age 5-11) Bivalent, COVID-19 04/08/2022 Pneumococcal conjugate 20 [facility] (Prevnar 20, PCV 20) 2mo and older [...] DX:Stage 3a chronic kidney d isease (CKD) ([facility]) Colon cancer screening DX:Colon cancer screening Health [...] at Not on file Legal Sex Male 8:27 PM EST Gender Identity Not on file Sexual Orientation Not on file Obstetrics History Last Filed [...] Care Team (Late st Contact Info) Description 09/27/2024 1:45 PM EDT Appointment [facility] CT Scan [address] [place] [address] 10/07/2024 2:00 PM EDT Office Visit Adult Medicine [address] [phone] Courtney Combs MD [address] [place] [address] 10/12/2024 11:00 AM EDT Office Visit Thoracic Surgery - [place] [address] [phone] Rafa Sexton PA [address] [address] Health Maintenance Due Date Last Done Comments [...] patient's age to complete this topic Meningococcal B Vacine Aged Out No lo nger eligible based on patient's age to complete [...] Signed Date: 07/23/2024 07:54 ET Workstation ID: [id number] Transcribed By: Self Edit Transcribed Date: 07/23/2024 07:36 ET Narrative 07/23/2024 7:54 AM EST EXAMINATION: CT CHEST WITHOUT CONTRAST LUNG CANCER SCREENING, LOW DOSE CLINICAL INFORMATION: Lung cancer screening. ??Former smoker COMPARISON: Portions of previous 07/10/2023 ?? TECHNIQUE: Multidetector CT. Examination of the chest. Examination of the chest without IV contrast. Reformatting in the coronal and sagittal planes. Device: Génie Numérique DLP: 195 mGy-cm CTDI: 4.89 Dose optimization [...] superior endplate in the region of T10. us Jess Barton MD IMG CT PROCEDURES Final Result * US ABDOMINAL AORTA REAL TIME SCREEN [...] Negative screening examination for abdominal aortic aneurysm. us Courtney Combs MD IMG US PROCEDURES Final Result from Last 3 Months or Most Recently Relevant to Health Maintenance Insurance [employer] Care Teams Nurse Outreach Case Manager Relationship Specialty Start Date End Date Courtney Combs MD [address] [place] [phone] PCP - General 04/01/23
--- OUTSIDE RECORDS SUMMARY | 2024-08-18 12:13 | XMS_ITS | Clinical Summary ---
Author Organization [employer] Address [address] [facility] 7t [place] [address] Care Team Providers Care Sweeper Driver Name Role Phone Josefina Pandey MD Primary Care Provide r Allergies No known active allergies Medications loratadine (Claritin) 10 MG tabletIndicatio ns:Chronic obstructive pulmonary disease, unspecified COPD type (CMS/HCC) Take 1 tablet (10 mg) by mouth in the morning. 30 tablet 2 10/23/19 23 Active azithromycin (Zithromax) 250 MG tabletIndicatio ns:Acute exacerbation of chronic obstructive airways disease (CMS/HCC) Take 2 tabs PO daily x 1d then 1 tab PO daily on D2 to D5 6 tablet 04/03/20 23 Active albuterol 108 (90 Base) MCG/ACT inhalerIndicati ons:Chronic obstructive pulmonary disease, unspecified COPD type (CMS/HCC) INHALE 2 PUFFS BY MOUTH EVERY 4 HOURS NEEDED 8.5 g 1 04/28/20 23 Active Breztri Aerosphere 160-9-4.8 MCG/ACT aerosol Inhale 1 puff 2 times daily. 10.7 g 03/04/20 24 Active ketoconazole (NIZOral) 2 % shampooIndicati ons:Seborrheic dermatitis apply by topical route 2-3 times weekly to the affected area(s), lather, leave in place for 5 minutes, and then rinse off with water 120 mL 2 03/04/20 24 Active hydrocortisone 2.5 % creamIndication s:Seborrheic dermatitis Apply topically 2 times daily. 28 g 11 03/04/20 24 Active hydroCHLOROthia zide 12.5 MG tabletIndicatio ns:Essential hypertension TAKE 1 TABLET BY MOUTH EVERY DAY 90 tablet 06/01/20 24 Active lansoprazole (Prevacid) [address] capsuleIndicati ons:Chronic gastritis without bleeding, unspecified gastritis type Take 1 capsule (30 mg) by mouth before breakfast. Do not crush or chew. 90 capsule 06/01/20 24 025 Active tamsulosin (Flomax) 0.4 MG 24 hr capsuleIndicati ons:Benign prostatic hyperplasia (BPH) with straining on urination TAKE 1 CAPSULE BY MOUTH EVERY MORNING 90 capsule 06/01/20 24 Active mometasone (Elocon) 0.1 % ointmentIndicat ions:Dermatitis Apply topically Once per day. 15 g 1 06/01/20 24 025 Active ciclopirox (Penlac) 8 % solutionIndicat ions:Onychomyco sis Apply topically at bedtime. 6 mL 1 06/01/20 24 Active losartan (Cozaar) 100 MG tabletIndicatio ns:Essential hypertension TAKE 1 TABLET BY MOUTH EVERY DAY 90 tablet 08/04/19 25 Active losartan (Cozaar) 100 MG tabletIndicatio ns:Essential hypertension TAKE 1 TABLET BY MOUTH EVERY DAY 90 tablet 05/10/20 24 025 Discontinued(Re order (will not trigger notification to Pharmacy)) Active Problems Problem Noted Date Diagnosed Date [...] Encounters Date Type Department Care Team Description 08/17/2024 Telephone [facility] [address] [place] [address] Josefina Pandey MD 08/17/2024 Orders Only [facility] [address], [place] [phone] Josefina Pandey MD Chronic rhinitis (Primary Dx) 08/16/2024 Telephone [facility] [address], [place] [phone] Josefina Pandey MD 08/04/2024 Refill [facility] [address], [place] [phone] Josefina Pandey MD Essential hypertension 08/03/2024 Telephone [facility] [address] [place] [phone] Nabil Singh [place] Appointment Request 08/03/[address] [address] Josefina Pandey MD FYI 07/02/[address] [address] Josefina Pandey MD Right tennis elbow; Tenosynovitis of left hand 06/01/2024 10:00 AM EST Office Visit [facility] [address] [place] [address] Josefina Pandey MD Essential hypertension (Primary Dx); Right tennis elbow; Tenosynovitis of left hand; Chronic obstructive pulmonary disease, unspecified COPD type (CMS/HCC); Colon cancer screening; Screening for colon cancer; Chronic gastritis without bleeding, unspecified gastritis type; Benign prostatic hyperplasia (BPH) with straining on urination; Dermatitis; Onychomycosis 06/01/2024 Travel 05/30/[address] [address] Nabil Singh [place] Chart Prep 05/18/2024 Patient Outreach [address] [address] Josefina Pandey MD Pre-visit Planning (Unable to complete annual screening over the phone, will complete in office) from Last 3 Months Immunizations Name Administration [...] 05/13/2024 12:56 PM EST Plan of Treatment Upcoming Encounters Date Type Department Care Team (Late st Contact Info) Description 09/29/2024 11:00 AM EDT Office Visit [facility] [address] [place] [address] Josefina Pandey MD [address] [place] [address] Health Maintenance Due Date Last Done Comments [...] PM EST) Cologuard Result Negative Negative 06/26/20 6:21 PM EST [facility] (CLIA #:[id number]) Comment: NEGATIVE TEST RESULT. A negative Cologuard [...] screened with both Cologuard and colonoscopy. (Sasha Chaidez et al, N Engl J Med 2014;370(14):1286- 1297) The normal value (reference range) for this assay is negative. COLOGUARD RE-SCREENING RECOMMENDATION: Periodic colorectal cancer screening is an important part of preventive healthcare for asymptomatic individuals at average risk for colorectal cancer. ??Following a negative Cologuard result, the [place] [employer] and U.S. Multi-Society Task Force screening guidelines recommend a Cologuard re-screening interval of 3 years. References: [place] [employer] Guideline for Colorectal Cancer Screening: https://www.cancer.org/cancer/rsldj-cigawt-vunqsa/iyhvejnwo-fjvftixgz-ekhruil/ac s-rec ommendations.html.; Brian RODRIGUEZ, Shabnam GATICA, Devika OliverosK, Colorectal Cancer Screening: Recommendations for Physicians and Patients from the U.S. Multi-Society Task Force on Colorectal Cancer Screening , Am J Gastroenterology 2017; 112:5020-8587. TEST DESCRIPTION: Composite algorithmic analysis of stool [...] (Sasha Roberts al, N Engl J Med 2014;370(14):6988-9608.) Cologuard may produce a false negative or false positive result (no colorectal cancer or precancerous polyp present at colonoscopy follow up). A negative Cologuard test result does not guarantee the absence of CRC or advanced adenoma (pre-cancer). The current Cologuard screening interval is every 3 years. ([place] [employer] and U.S. Multi-Society Task Force). Cologuard performance data in a 10,000 patient pivotal study using colonoscopy as the reference method can be accessed at the following location: www.Kiip/results. Additional description of the Cologuard test process, warnings and precautions can be found at www.SendmeboxogGaia Interactiverd.com. Stool specimen (specimen) 06/20/2024 12:05 PM EST 06/21/2024 12:06 PM EST Josefina Garcia MD LAB MOLECULAR DIAGNOS TICS ORDERABLES Final Result Performing Organization Address City/[facility]/ZIP Co de Phone Number [facility] (CLIA #:[id number]) [address] [place] [address], * TSH with Reflex to Free T4 (05/23/2024 11:48 AM EST) TSH reflex Free T4 2.33 0.32 - 4.0 uIU/mL [facility] Blood 05/23/2024 11:4 8 AM EST 05/23/2024 1:10 PM EST us Josefina Garcia MD LAB BLOOD ORDERABLES Final Result Performing Organization Address City/[facility]/ZIP Co de Phone Number [facility] [address] [place] [phone] [phone] * Lipid Panel with Reflex to Direct LDL (05/23/2024 11:48 AM EST) Triglycerides 55 <150 mg/dL [facility] Comment:Desirable Triglyceri de: less than 150 mg/dLBorderline High Triglyceride 150-199 mg/dLHigh Triglyceride: 200-499 mg/dLVery High Triglyceride: greater than or equal to 5OO mg/dL Cholesterol 196 <200 mg/dL [facility] Comment:Desirable Cholestero l: less than 200 mg/dLBorderline High Cholesterol: 200-239 mg/dLHigh Cholesterol: greater than 239 mg/dL LDL Cholesterol Calculated 94 <100 mg/dL [facility] Comment:Desirable LDL: less than 100 mg/dLNear Optimal/Above Optimal LDL: 110- 129 mg/dLBorderline High LDL: 130-159 mg/dLHigh LDL: 160-189 mg/dLVery High LDL: greater than or equal to 190 mg/dL HDL Cholesterol 91 >40 mg/dL [facility] Comment:Desirable HDL: great er than 40 mg/dL Note: This HDL assay may give artificially low results in patients with liver disease. Blood 05/23/2024 11:4 8 AM EST 05/23/2024 1:10 PM EST us Josefina Garcia MD LAB BLOOD ORDERABLES Final Result Performing Organization Address [facility] Co de Phone Number [facility] [address] [place] [phone] * (ABNORMAL) CBC auto differential (05/23/2024 11:48 AM EST) White Blood Count 7.1 4.8 - 10.8 X10*3/uL [facility] Red Blood Count 4.97 4.60 - 5.80 X10*6/uL [facility] Hemoglobin 14.9 14.0 - 18.0 g/dl [facility] Hematocrit 45.8 42.0 - 52.0 % [facility] Mean Corpuscular Volume 92.2 80.0 - 98.0 fL [facility] Mean Corpuscular Hemoglobin 30.0 27.0 - 33.0 pg [facility] Mean Corpuscular HGB Conc 32.5 31.0 - 36.0 g/dl [facility] Red Cell Distribution Width 16.8(H) 11.0 - 16.0 % [facility] Platelet Count 319 160 - 400 X10*3/uL [facility] Mean Platelet Volume 10.2 9.4 - 12.4 fL [facility] Neutrophils Percent Auto 64.3 45 - 73 % [facility] Imm Gran Pct Auto 0.3 0.0 - 0.4 % [facility] Lymphocytes Percent Auto 19.6(L) 20 - 40 % [facility] Monocytes Percent Auto 8.7 2 - 11 % [facility] Eosinophils Percent Auto 6.0(H) 0 - 4 % [facility] Basophils Percent Auto 1.1 0 - 2 % [facility] NRBC Pct Auto 0.0 0.0 - 0.2 /100WBC [facility] Neutrophils Absolute Auto 4.5 2.0 - 8.3 x10*3/uL [facility] Imm Gran Abs Auto 0.02 0.00 - 0.03 X10*3/uL [facility] Lymphocytes Absolute Auto 1.4 1.2 - 4.9 X10*3/uL [facility] Monocytes Absolute Auto 0.6 0.1 - 1.2 X10*3/uL [facility] Eosinophils Absolute Auto 0.4 0.0 - 0.4 X10*3/uL [facility] Basophils Absolute Auto 0.1 0.0 - 0.2 X10*3/uL [facility] NRBC Abs Auto 0.000 0.0 - 0.012 X10*3/uL [facility] Blood Venous blood specimen / Unknown 05/23/2024 11:48 AM EST 05/23/2024 1:14 PM EST us Josefina Garcia MD LAB BLOOD ORDERABLES Final Result Performing Organization Address [facility]/ZIP Co de Phone Number [facility] [address] [place] [phone] * Hemoglobin A1c (05/23/2024 11:48 AM EST) Hemoglobin A1c 5.2 <6.0 % [facility] Comment:Hemoglobin A1C Refer ence Range Adults: 4.8 - 6.0 % Non diabetic: < 6.0 % Goal: < 7.0 %Additional Action Suggested: > 8.0 %Note: Hemoglobin A1c results are invalid for patients with abnormal amounts of HbF. Blood transfusions may impact the HbA1c concentration in the patient sample. Estimated Average Glucose 103 mg/dL [facility] Comment:eAG = Estimated ave rage glucose which is %A1C expressed asaverage glucose, using the formula of the P5H-NdnxwgwVotmhew Glucose study (ADAG), Diabetes Care, Vol.31,#8,Jan. 2007 Blood Venous blood specimen / Unknown 05/23/2024 11:48 AM EST 05/23/2024 1:14 PM EST Josefina Garcia MD LAB BLOOD ORDERABLES Final Result Performing Organization Address [facility] Co de Phone Number [facility] [address] [place] [phone] * (ABNORMAL) Comprehensive Metabolic Panel (05/23/2024 11:48 AM EST) Sodium 138 135 - 145 mmol/L [facility] Potassium 4.0 3.3 - 5.1 mmol/L [facility] Chloride 101 96 - 108 mmol/L [facility] Carbon Dioxide 27 22 - 29 mmol/L [facility] Anion Gap 14 12 - 20 [facility] Urea Nitrogen (BUN) 17(H) 9 - 16 mg/dL [facility] Creatinine, Serum 1.26 0.5 - 1.4 mg/dL [facility] Estimated Glomerular Filt Rate 56 [facility] Comment:Chronic Kidney Disea se: Estimated GFR < 60 mL/min/1.21e0Hwhvkv Kidney Disease: Estimated GFR < 15 mL/min/1.73m2 Glucose 93 60 - 115 mg/dL [facility] Calcium 9.4 8.4 - 10.2 mg/dL [facility] Bilirubin, Total 1.0 0.0 - 1.0 mg/dL [facility] Aspartate Amino Transferase 26 5 - 37 U/L [facility] Alanine Aminotransferase 22 0 - 40 U/L [facility] Total Protein 7.1 6.5 - 8.0 g/dL [facility] Albumin Level 4.2 3.5 - 5.0 g/dL [facility] Alkaline Phosphatase 52 39 - 117 U/L [facility] Blood Venous blood specimen / Unknown 05/23/2024 11:48 AM EST 05/23/2024 1:10 PM EST us Josefina Garcia MD LAB BLOOD ORDERABLES Final Result [facility] [address] [place] [phone] * Hm Colonoscopy (01/01/2021) us Historical Provider HEALTH MAINTENANCE Final Result from Last 3 Months or Most Recently Relevant to Health Maintenance Insurance [facility] MEDICARE ADVANTAGE HMO Care Teams Sweeper Driver Relationship Specialty Start Date End Date Josefina Pandey MD [address] [place] [phone] PCP - General Family Medicine 11/05/20
--- OUTSIDE RECORDS SUMMARY | 2024-08-18 12:13 | XMS_ITS | Encounter Summary ---
Author Organization [facility] Address [address] [place] [address] Care Team Providers Care Skidder Runner Name Role Phone Courtney Combs MD Primary Care Prov ider Reason for Referral * Imaging (Routine) - Authorized Specialty Diagnoses / Procedures Referred By Contac t Referred To Contact Radiology Diagnoses Lung nodule Procedures CT Chest wo Contrast (Lung-RADS F/U) Sandra Montero NP [address] [facility] [address] [place] [phone] Phone: tel: fax: [facility] Referral ID Status Reason Start Date Expiration Date V isits Requested Visits Authorized [id number] Authorized 08/02/2024 08/02/2025 1 1 Reason for Visit * Reason Onset Date Comments Results 07/25/2024 Annual Lung Scre ening- Suspicious findings Encounter Details Date Type Department Care Team (Late st Contact Info) Description 07/25/2024 Telephone Lung Screening Program - [place] [address] [facility] [address] [place] [phone] Carmel Benitez MA Results (Annual Lung Screening- [...] on file Sexual Orientation Not on file documented as of this encounter Progress Notes * Sandra Montero NP - 08/02/2024 3:27 PM ESTAddended by: SANDRA MONTERO on: 08/02/2024 03:27 PM Modules accepted: Orders * Sandra Montero NP - 08/02/2024 3:24 PM EST Images from the original note were not included. Lung Cancer Screening Program Suspicious Finding: Tumor Board Review Name: Manolo Medel : 1950 Care Team Referring Physician: No ref. provider found Primary Care Physician: Courtney Aguilar MD Mr. Sravan Medel is a current patient of the Lung Cancer Screening Program at [facility].He had his Low Dose Screening CT on 07/15/24 which was given a LungRADS score of 4 due to the following suspicious finding: irregular thickening a cyst in the superior segment of the right lower lobe. Due to this finding, the patient was presented at our Multidisciplinary Thoracic Tumor Board Conference on 08/01/24. Tumor Board Recommendations Recommendation at this time includes: repeat CT chest in 3 months with follow visit with DMITRY after chest CT. The patient will be hearing from our office with the appointment date(s) for the above recommendations. This information was communicated with the patient on 08/02/2024 at 3:24 PM EST via telephone call. All of his questions and concerns were answered and understood. Sandra Montero NP [facility] Lung Cancer Screening Program [address] [place] [address], [address] [phone] * Rosaura Mcdonald MA - 08/02/2024 3:06 PM EST This patient's case was presented at our Multidisciplinary Thoracic Tumor Board Conference. This conference consists of Medical Oncologists, Radiation Oncologists, Thoracic Surgeons, Pathologists, Radiologists, Pulmonologists, Nurses, Cancer Program Coordinators, and other members of the health care team. Reviewed is the patient's diagnosis, summary, pertinent history, diagnostic imaging, and pathology findings. The recommendations are as follows: 3 month follow up LDCT with DMITRY appointment We will communicate this to the patient and arrange the recommended follow-up testing. Please do not hesitate to contact our office with any questions, . Thank you. * Carmel Benitez MA - 07/25/2024 11:39 [...] presented between 12-12:20pm. Please reach out to SHIKHA Puentes Coordinator to request the Teams information. documented in this encounter Plan of Treatment Upcoming Encounters Date Type Department Care Team (Late st Contact Info) Description 09/27/2024 1:45 PM EDT Appointment [facility] CT Scan [address] [place] [phone] 10/07/2024 2:00 PM EDT Office Visit Adult Medicine [address] [phone] Courtney Combs MD [address] [place] [phone] 10/12/2024 11:00 AM EDT Office Visit Thoracic Surgery [facility] [address] [phone] Rafa Sexton, KENDRA [address] [address] Scheduled Orders Name Type Priority Associated Diagnoses Orde r Schedule CT Chest wo Contrast (Lung-RADS F/U) Imaging Routine Lung nodule Expected: 09/27/2024, Expires: 08/02/2025 documented as of this encounter Visit Diagnoses Diagnosis Lung nodule- Primary Other diseases of lung, not elsewhere classified documented in this encounter Care Teams Skidder Runner Relationship Specialty Start Date End Date Courtney Combs MD [address] [place] [phone] PCP - General 04/01/23 documented as of this encounter
--- OUTSIDE RECORDS SUMMARY | 2024-08-18 12:13 | XMS_ITS | Encounter Summary ---
Author Organization [email or web address] Address [address] [facility] 7t [place] [address] Care Team Providers Care Plush Finisher Name Role Phone Josefina Pandey MD Primary Care Provide r Reason for Visit * Reason Comments Med Refill Encounter Details Date Type Department Care Team ([facility] st Contact Info) Description 07/02/2024 Refill [facility] [address] [place], [place] [phone] Josefina Pandey MD [address] [place] [address] Right tennis elbow; Tenosynovitis of left hand [...] Description 09/29/2024 11:00 AM EDT Office Visit [facility] [address] [place] [address] Josefina Pandey MD [address] [place] [address] documented as of this encounter Visit Diagnoses Diagnosis Right tennis elbow Tenosynovitis of left hand documented in this encounter Additional Health Concerns Assessment Noted Time PHQ-9 Depression Total Score: 9 06/01/20 24 10:07 AM EST documented as of this encounter Care Teams Plush Finisher Relationship Specialty Start Date End Date Josefina Pandey MD [address] [place] [phone] PCP - General Family Medicine 11/05/20 documented as of this encounter
--- OUTSIDE RECORDS SUMMARY | 2024-08-18 12:13 | XMS_ITS | Encounter Summary ---
Author Organization [employer] Address [address] [place] [address] 7 [place] [address] Care Team Providers Care Brim Welt Sewing Machine Operator Name Role Phone Josefina Pandey MD Primary Care Provide r Reason for Visit * Reason Onset Date Comments Medication Question 03/09/2023 Encounter Details Date Type Department Care Team ([facility] st Contact Info) Description 03/09/2023 Telephone [facility] [address] [place], [place] [phone] Josefina Pandey MD [address] [place] [address] Medication Question Social History Tobacco Use Types [...] to check . Patric , pharmacist at [facility] stated that the pt is in the coverage gap with his insurance , and will need to pay the $ 119.20 co pay for his inhaler , either brand name . Per [facility] pharmacy the pt may qualify for a secondary insurance .Pt was advised of this ,and was advised to call Nayla in the insurance department at [facility] ( ) to see if he may [...] like to discuss oxygen options. Patient speaks lao. documented in this encounter Plan of Treatment Upcoming Encounters Date Type Department Care Team (Late st Contact Info) Description 09/29/2024 11:00 AM EDT Office Visit [facility] [address] [place] [phone] Josefina Pandey MD [address] [place] [address] documented as of this encounter Visit Diagnoses Not on filedocumented in this encounter Care Teams Brim Welt Sewing Machine Operator Relationship Specialty Start Date End Date Josefina Pandey MD [address] [place] [phone] PCP - General Family Medicine 11/05/20 documented as of this encounter
--- OUTSIDE RECORDS SUMMARY | 2024-08-18 12:13 | XMS_ITS | Encounter Summary ---
Author Organization [employer] Address [address] [facility] [place] [address] Care Team Providers Care Lead Project Engineer Name Role Phone Josefina Pandey MD Primary Care Provide r Encounter Details Date Type Department Care Team ([facility] st Contact Info) Description 08/16/2024 Telephone [facility] [address] [place], [place] [phone] Josefina Pandey MD [address] [place] [address] Social History Tobacco Use Types Packs/Day Years [...] encounter Miscellaneous Notes * Telephone Encounter - Nabil Singh MA - 08/16/2024 3:16 PM EST TC- Patient in regards of message below patient just want's to discuss with provider materials handling coordinator appointment .He wants to know why he was not referred to a Otorhinolaryngology instead .States he had a conversation with and she said she would referred him to Otorhinolaryngology not materials handling coordinator.Patient was advised to wait for his next appt melvi for 09/29/2024 w pcp so he could speak with her but patient states he has waited to long , so I look into the melvi to see if there was an earlier apptbut no luck . I told him I would send a message to in regards of his concerns and she would decided what to do next. He agreed with plan . Tc from pt returning call. Wash Mill Operator scheduled pt for follow up on 09/29/24 at 11AM. Pt is requesting a call back to further discuss appointment with materials handling coordinator. documented in this encounter Plan of Treatment Upcoming Encounters Date Type Department Care Team ([facility] st Contact Info) Description 09/29/2024 11:00 AM EDT Office Visit [facility] [address] [place] [phone] Josefina Pandey MD [address] [place] [address] documented as of this encounter Visit Diagnoses Not on filedocumented in this encounter Additional Health Concerns Assessment Noted Time PHQ-9 Depression Total Score: 9 06/01/20 24 10:07 AM EST documented as of this encounter Care Teams Lead Project Engineer Relationship Specialty Start Date End Date Josefina Pandey MD [address] [place] [address] PCP - General Family Medicine 11/05/20 documented as of this encounter
--- OUTSIDE RECORDS SUMMARY | 2024-08-18 12:13 | XMS_ITS | Encounter Summary ---
Author Organization [employer] Address [address] [place] [address] 7 [place] [address] Care Team Providers Care Leather Flesher Name Role Phone Josefina Pandey MD Primary Care Provide r Reason for Visit * Reason Onset Date Comments r/s appt 08/22/2022 Encounter Details Date Type Department Care Team ([facility] st Contact Info) Description 08/22/2022 Telephone [facility] MEDICINE [address] [place] [address] Josefina Pandey MD [address] [place] [address] r/s appt Social History Tobacco Use Types [...] back until September. Please contact pt at [phone] Faroese Speaker documented in this encounter Plan of Treatment Upcoming Encounters Date Type Department Care Team (Late st Contact Info) Description 09/29/2024 11:00 AM EDT Office Visit [facility] [address] [place] [address] Josefina Pandey MD [address] [place], [place] [phone] documented as of this encounter Visit Diagnoses Not on filedocumented in this encounter Care Teams Leather Flesher Relationship Specialty Start Date End Date Josefina Pandey MD [address] [place] [address] [phone] PCP - General Family Medicine 11/05/20 documented as of this encounter
--- OUTSIDE RECORDS SUMMARY | 2024-08-18 12:13 | XMS_ITS | Encounter Summary ---
Author Organization [employer] Address [address] [place] [address] 7 [place] [address] Care Team Providers Care Continuous Still Operator Name Role Phone Josefina Pandey MD Primary Care Provide r Reason for Referral * Consultation (Routine) - Pending Review Specialty Diagnoses / Procedures Referred By Sukhwinder dimas Referred To Contact Otolaryngology Diagnoses Chronic rhinitis Josefina Pandey MD [address] [place] [address] Phone: tel: fax: Referral ID Status Reason Start Date Expiration Date Visits Requested Visits Authorized [id number] Pending Review Specialty Services Required 08/17/2024 08/17/2025 1 1 Encounter Details Date Type Department Care Team (Late st Contact Info) Description 08/17/2024 Orders Only [facility] MEDICINE [address] [place], [place] [phone] Josefina Pandey MD 230 [place], [place] [phone] Chronic rhinitis (Primary Dx) Social History Tobacco Use Types Packs/Day Years [...] Description 09/29/2024 11:00 AM EDT Office Visit [facility] MED[facility]INE [address] [place] [address] Josefina Pandey MD [address] [place] [address] Scheduled Referrals Name Type Priority Associated Diagnoses Orde r Schedule Referral to ENT Outpatient Referral Routine Chronic rhinitis Expected: 08/17/2024 (Approximate), Expires: 08/17/2025 documented as of this encounter Visit Diagnoses Diagnosis Chronic rhinitis- Primary documented in this encounter Additional Health Concerns Assessment Noted Time PHQ-9 Depression Total Score: 9 12/04/20 24 10:07 AM EST documented as of this encounter Care Teams Continuous Still Operator Relationship Specialty Start Date End Date Joesfina Pandey MD [address] [place] [phone] PCP - General Family Medicine 11/05/20 documented as of this encounter
--- OUTSIDE RECORDS SUMMARY | 2024-08-18 12:13 | XMS_ITS | Clinical Summary ---
Author Organization [facility] Facility Address [address] [place] [address] Care Team Providers Care Retail Planner Name Role Phone Josefina Pandey MD Primary [...] to complete this topic Insurance Care Teams Retail Planner Relationship Specialty Start Date End Date Josefina Pandey MD [address] [place] [phone] PCP - General Internal Medicine 08/29/20
--- OUTSIDE RECORDS SUMMARY | 2024-08-18 12:13 | XMS_ITS | Encounter Summary ---
Author Organization [employer] Address [address] [facility] 7t [place] [address] Care Team Providers Care Suspender Cutter Name Role Phone Josefina Pandey MD Primary Care Provide r Reason for Visit * Reason Onset Date Comments Appointment Request 08/03/2024 Encounter Details Date Type Department Care Team ([facility] st Contact Info) Description 08/03/2024 Telephone [facility] MEDICINE [address] [place] [address] Nabil Singh MA Appointment Request Social History Tobacco Use Types [...] encounter Miscellaneous Notes * Telephone Encounter - Kiki Davis - 08/11/2024 11:38 AM EST Tc from pt returning call. Tank House Supervisor scheduled pt for follow up on 09/29/24 at 11AM. Pt is requesting a call back to further discuss appointment with mortgage funder. Contact pt at [phone] (kuwaiti) * Telephone Encounter - Nabil Singh MA - 08/03/2024 2:15 PM EST Tc- Patient to book appt for f\u see message below .Left a voice message to call back and melvi appt. Please contact patient to schedule him a f/u appointment regarding his chronic rhinitis. Patient saw mortgage funder who stated he did not have allergies. Patient needs an appointment with PCP to discuss next steps. Thank you! documented in this encounter Plan of Treatment Upcoming Encounters Date Type Department Care Team ([facility] st Contact Info) Description 09/29/2024 11:00 AM EDT Office Visit [facility] MEDICINE [address] [place] [address] Josefina Pandey MD [address] [place] [address] documented as of this encounter Visit Diagnoses Not on filedocumented in this encounter Additional Health Concerns Assessment Noted Time PHQ-9 Depression Total Score: 9 06/01/20 24 10:07 AM EST documented as of this encounter Care Teams Suspender Cutter Relationship Specialty Start Date End Date Josefina Pandey MD [address] [place] [address] PCP - General Family Medicine 11/05/20 documented as of this encounter
--- OUTSIDE RECORDS SUMMARY | 2024-08-18 12:13 | XMS_ITS | Encounter Summary ---
Author Organization [employer] Address [address] [facility] 7 [place] [address] Care Team Providers Care Social Worker Assistant Name Role Phone Josefina Pandey MD Primary Care Provide r Reason for Visit * Reason Onset Date Comments Med Refill 08/04/2024 Encounter Details Date Type Department Care Team (Late st Contact Info) Description 08/04/2024 Refill [facility] MEDICINE [address] [place] [address] Josefina Pandey MD [address] [place] [address] Essential hypertension Social History Tobacco Use Types Packs/Day Years [...] encounter Miscellaneous Notes * Telephone Encounter - Richelle Thomas LPN - 08/04/2024 11:43 AM EST Last seen 06/01/24. * Telephone Encounter - Kam Dos Santos - 08/04/2024 11:41 AM EST TC from pt requesting medication refill. Medications needing refill : losartan (Cozaar) 100 MG tablet To be sent to: [id number] AT [facility] documented in this encounter Plan of Treatment Upcoming Encounters Date Type Department Care Team (Late st Contact Info) Description 09/29/2024 11:00 AM EDT Office Visit [facility] MEDICINE [address] [place], [place] [phone] Josefina Pandey MD [address] [place] [address] documented as of this encounter Visit Diagnoses Diagnosis Essential hypertension Unspecified essential hypertension documented in this encounter Additional Health Concerns Assessment Noted Time PHQ-9 Depression Total Score: 9 06/01/20 24 10:07 AM EST documented as of this encounter Care Teams Social Worker Assistant Relationship Specialty Start Date End Date Josefina Pandey MD [address] [place] [address] PCP - General Family Medicine 11/05/20 documented as of this encounter
--- OUTSIDE RECORDS SUMMARY | 2024-08-18 12:13 | XMS_ITS | Encounter Summary ---
Author Organization [employer] Address [address] 7t [place] [address] Care Team Providers Care Geochemical Laboratory Technician Name Role Phone Josefina Pandey MD Primary Care Provide r Encounter Details Date Type Department Care Team ([facility] st Contact Info) Description 08/17/2024 Telephone [facility] MEDICINE [address] [place], [place] [phone] Josefina Pandey MD [address] [place] [address] Social History Tobacco Use Types Packs/Day Years [...] Telephone Encounter - Nabil Singh MA - 08/17/2024 2:37 PM EST TC- Patient in regards of message below , patient was thankful. Please let patient know referral is in Otorhinolaryngology . documented in this encounter Plan of Treatment Upcoming Encounters Date Type Department Care Team (Late st Contact Info) Description 09/29/2024 11:00 AM EDT Office Visit [facility] MEDICINE [address] [place] [address] Josefina Pandey MD [address] [place] [address] documented as of this encounter Visit Diagnoses Not on filedocumented in this encounter Additional Health Concerns Assessment Noted Time PHQ-9 Depression Total Score: 9 06/01/20 24 10:07 AM EST documented as of this encounter Care Teams Geochemical Laboratory Technician Relationship Specialty Start Date End Date Josefina Pandey MD [address] [place] [phone] PCP - General Family Medicine 11/05/20 documented as of this encounter
--- OUTSIDE RECORDS SUMMARY | 2024-08-18 12:13 | XMS_ITS | Encounter Summary ---
Author Organization [employer] Address [address] [facility] 7 [place] [address] Care Team Providers Care Circulation Crew Leader Name Role Phone Josefina Pandey MD Primary Care Provide r Reason for Visit * Reason Onset Date Comments FYI 08/03/2024 Encounter Details Date Type Department Care Team ([facility] st Contact Info) Description 08/03/2024 Telephone [facility] MEDICINE [address] [place], [place] [phone] Josefina Pandey MD [address] [place] [address] FYI Social History Tobacco Use Types Packs/Day Years [...] encounter Miscellaneous Notes * Telephone Encounter - Kenyatta Vazquez - 08/03/2024 1:28 PM EST Tc from pt requesting a call back.. Pt states that he already made the appointment with the machine grainer on 06/16, everything was fine and he is not allergic to anything. Pt are waiting for the next step regarding concerns with their nose (breathing problems). Any questions contact (Pt/ Occitan speaker) ([phone] (Daughter) documented in this encounter Plan of Treatment Upcoming Encounters Date Type Department Care Team (Late st Contact Info) Description 09/29/2024 11:00 AM EDT Office Visit [facility] MEDICINE [address] [place] [address] Josefina Pandey MD [address] [place] [address] documented as of this encounter Visit Diagnoses Not on filedocumented in this encounter Additional Health Concerns Assessment Noted Time PHQ-9 Depression Total Score: 9 06/01/20 24 10:07 AM EST documented as of this encounter Care Teams Circulation Crew Leader Relationship Specialty Start Date End Date Josefina Pandey MD [address] [place] [address] PCP - General Family Medicine 11/05/20 documented as of this encounter
== END 2024-08-18 11:24 | disposition home or self-care (01) ==
PROVIDERS: PCP Internal Medicine; Visit Provider Internal Medicine Pulmonary Disease
DX: J44.9 Chronic obstructive pulmonary disease, unspecified (principal); Z99.81 Dependence on supplemental oxygen; Z87.891 Personal history of nicotine dependence
CPT/HCPCS: 99214

== ENCOUNTER → 2024-08-18 10:56 | Outpatient (BNVA) | payer MEDICARE, SELFPAY | PROVIDERS: PCP Internal Medicine; Visit Provider Internal Medicine Pulmonary Disease | DX: J44.9 Chronic obstructive pulmonary disease, unspecified (principal); Z99.81 Dependence on supplemental oxygen; Z87.891 Personal history of nicotine dependence | CPT/HCPCS: 99212 ==

== ENCOUNTER 2024-08-24 11:12 | Outpatient (AMB) | payer MEDICARE, SELFPAY ==
--- NOTE | 2024-08-24 11:29 | MHC.OFFVIS ---
Vital Signs 08/24/24 11:30 Height 5 ft 9 in Weight 169 lb BMI 25.0 Handedness Right Intake Visit Reasons: OV-LT Thumb Tendonitis Intake Note: Manolo is a 74 year old right hand dominant male who presents today for a follow up of his Left thumb tendonitis. At his last visit he was provided with a comfort cool brace and instructed to continue working with OT. He has notices that his hand is still causing him pain. Pilot Plant Research Technician Services: Pilot Plant Research Technician Present (Jonathon ([id number])) Allergies naproxen [From Aleve] Adverse Reaction (Severe, Verified 08/24/24 11:32) rash HPI HPI OV-LT Thumb Tendonitis: Details: Manolo is a 74 year old right hand dominant male who presents today for a follow up of his Left thumb tendonitis. At his last visit he was provided with a comfort cool brace and instructed to continue working with OT. He has notices that his hand is still causing him pain. [facility] Medical History Exercise hypoxemia COPD (chronic obstructive pulmonary disease) Dyspnea on exertion Asthma Rash CKD (chronic kidney disease), stage III HTN (hypertension) COPD (chronic obstructive pulmonary disease) Surgical History History of esophagogastroduodenoscopy (EGD) (~2013) Hx of colonoscopy (~2013) Hx of hand surgery Family History Family/Other No problems noted. 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 Neuro: Normal sensation of the tips of all digits of the left hand at this time Vascular: Cap refill brisk Pain: Patient reports no tenderness to palpation about the left thumb, wrist, or hand Pain in the dorsal thumb with range of motion ROM: Patient is able to make a closed fist and extend all digits of the left hand fully, but reports discomfort when doing so Skin: No lacerations or abrasions. General: No ecchymosis, erythema, or evidence of infection. Psych: Appears grossly normal Affect normal Attitude cooperative Assessment & Plan Assessment & Plan (1) Pain of left thumb: Code(s): M79.645 - Pain in left finger(s) Category: Medical Plan 1. Tendinitis and pain of the left thumb Ongoing for several months Patient was provided with comfort cool thumb spica splint Patient is educated he should continue with occupational therapy, which he has been going to since being referred by his primary care provider Patient was amenable to this plan Patient was advised on conservative pain management measures, such as rest, ice, elevation, [id number] pain medication as needed Patient will follow-up as needed with any acute concerns Orders: Orders OT Evaluation and Treatment 08/24/24 M79.645 - Pain in left finger(s) Coding Level of Care Code Est Pt Level 3 (98765) Diagnoses Pain of left thumb M79.645
[2024-08-24 11:30] VITALS: BMI 25.0
--- OUTSIDE RECORDS SUMMARY | 2024-08-24 14:02 | XMS_ITS | Encounter Summary ---
Author Organization [employer] Address [address] [facility] 7 [place] [address] Care Team Providers Care Manager Asset Name Role Phone Josefina Pandey MD Primary Care Provide r Reason for Visit * Reason Onset Date Comments Med Refill 08/04/2024 Encounter Details Date Type Department Care Team (Late st Contact Info) Description 08/04/2024 Refill [facility] MEDICINE [address] [place] [address] Josefina Pandey MD [address] [place] [address] Essential hypertension Social History Tobacco Use Types [...] 100 MG tablet To be sent to: [facility] #[id number] AT [facility] documented in this encounter Plan of Treatment Upcoming Encounters Date Type Department Care Team (Late st Contact Info) Description 09/29/2024 11:00 AM EDT Office Visit [facility] MEDICINE [address] [place], [place] [phone] Josefina Pandey MD [address] [place] [address] documented as of this encounter Visit Diagnoses Diagnosis Essential hypertension Unspecified essential hypertension documented in this encounter Additional Health Concerns Assessment Noted Time PHQ-9 Depression Total Score: 9 06/01/20 24 10:07 AM EST documented as of this encounter Care Teams Manager Asset Relationship Specialty Start Date End Date Josefina Pandey MD [address] [place] [address] PCP - General Family Medicine 11/05/20 documented as of this encounter
--- OUTSIDE RECORDS SUMMARY | 2024-08-24 14:02 | XMS_ITS | Encounter Summary ---
Author Organization [employer] Address [address] [facility] 7 [place] [address] Care Team Providers Care Roll Winder Name Role Phone Josefina Pandey MD Primary Care Provide r Reason for Visit * Reason Onset Date Comments FYI 08/03/2024 Encounter Details Date Type Department Care Team ([facility] st Contact Info) Description 08/03/2024 Telephone [facility] MEDICINE [address] [place], [place] [phone] Josefina Pandey MD [address] [place] [address] FYI Social History Tobacco Use Types Packs/Day [...] he already made the appointment with the instrumentation controls engineer on 06/16, everything was fine and he is not allergic to anything. Pt are waiting for the next step regarding concerns with their nose (breathing problems). Any questions contact [phone] (Pt/ Persian speaker) ([phone] (Daughter) documented in this encounter Plan of Treatment Upcoming Encounters Date Type Department Care Team (Late st Contact Info) Description 09/29/2024 11:00 AM EDT Office Visit [facility] MEDICINE [address] [place] [address] Josefina Pandey MD [address] [place] [address] documented as of this encounter Visit Diagnoses Not on filedocumented in this encounter Additional Health Concerns Assessment Noted Time PHQ-9 Depression Total Score: 9 06/01/20 24 10:07 AM EST documented as of this encounter Care Teams Roll Winder Relationship Specialty Start Date End Date Josefina Pandey MD [address] [place] [address] PCP - General Family Medicine 11/05/20 documented as of this encounter
--- OUTSIDE RECORDS SUMMARY | 2024-08-24 14:02 | XMS_ITS | Encounter Summary ---
Author Organization [employer] Address [address] [place] [address] 7 [place] [address] Care Team Providers Care Environmental Auditor Name Role Phone Josefina Pandey MD Primary Care Provide r Reason for Visit * Reason Onset Date Comments r/s appt 08/22/2022 Encounter Details Date Type Department Care Team ([facility] st Contact Info) Description 08/22/2022 Telephone [facility] MEDICINE [address] [place] [address] Josefina Pandey MD 230 [place] [address] r/s appt Social History Tobacco Use Types [...] back until September. Please contact pt at [phone] Setswana Speaker documented in this encounter Plan of Treatment Upcoming Encounters Date Type Department Care Team (Late st Contact Info) Description 09/29/2024 11:00 AM EDT Office Visit [facility] MEDICINE [address] [place] [address] Josefina Pandey MD [address] [place], [place] [phone] documented as of this encounter Visit Diagnoses Not on filedocumented in this encounter Care Teams Environmental Auditor Relationship Specialty Start Date End Date Josefina Pandey MD [address] [place] [address] [phone] PCP - General Family Medicine 11/05/20 documented as of this encounter
--- OUTSIDE RECORDS SUMMARY | 2024-08-24 14:02 | XMS_ITS | Encounter Summary ---
Author Organization [employer] [facility] Address [address] [place] [address] 7t [place] [address] Care Team Providers Care Ceramics Engineer Name Role Phone Josefina Pandey MD Primary Care Provide r Encounter Details Date Type Department Care Team (Late st Contact Info) Description 03/10/2023 Orders Only [facility] MEDICINE [address] [place] [address] Provider, MD Constantine Social History Tobacco Use [...] 09/29/2024 11:00 AM EDT Office Visit [facility] MEDICINE [address] [place] [address] Josefina Pandey MD [address] [place] [address] [phone] documented as of this encounter Procedures Procedure Name Priority Date/Time Associated Diagnosis Comments HM COLONOSCOPY Routine 01/01/2021 documented in this encounter Results * Hm Colonoscopy (01/01/2021) Historical Provider HEALTH MAINTENANCE Final Result documented in this encounter Visit Diagnoses Not on filedocumented in this encounter Care Teams Ceramics Engineer Relationship Specialty Start Date End Date Josefina Pandey MD 230 [place] [address] PCP - General Family Medicine 11/05/20 documented as of this encounter
--- OUTSIDE RECORDS SUMMARY | 2024-08-24 14:02 | XMS_ITS | Encounter Summary ---
Author Organization [employer] Address [address] [facility] [facility] [address] 7t [place] [address] Care Team Providers Care Learning Designer Name Role Phone Josefina Pandey MD Primary Care Provide r Encounter Details Date Type Department Care Team ([facility] st Contact Info) Description 08/17/2024 Telephone [facility] MEDICINE [address] [place], [place] [phone] Josefina Pandey MD [address] [place] [address] Social History Tobacco Use Types Packs/Day Years [...] Description 09/29/2024 11:00 AM EDT Office Visit [facility] MEDICINE [address] [place] [address] Josefina Pandey MD [address] [place] [address] documented as of this encounter Visit Diagnoses Not on filedocumented in this encounter Additional Health Concerns Assessment Noted Time PHQ-9 Depression Total Score: 9 06/01/20 24 10:07 AM EST documented as of this encounter Care Teams Learning Designer Relationship Specialty Start Date End Date Josefina Pandey MD [address] [place] [phone] PCP - General Family Medicine 11/05/20 documented as of this encounter
--- OUTSIDE RECORDS SUMMARY | 2024-08-24 14:02 | XMS_ITS | Encounter Summary ---
Author Organization [employer] Address [address] [facility] 7t [place] [address] Care Team Providers Care Field Instructor Name Role Phone Josefina Pandey MD Primary Care Provide r Reason for Visit * Reason Comments Med Refill Encounter Details Date Type Department Care Team ([facility] st Contact Info) Description 07/02/2024 Refill [facility] MEDICINE 230 [place], [place] [phone] Josefina Pandey MD 230 [place] [address] Right tennis elbow; Tenosynovitis of left hand [...] Description 09/29/2024 11:00 AM EDT Office Visit [facility] MEDICINE [address] [place] [address] Josefina Pandey MD [address] [place] [address] documented as of this encounter Visit Diagnoses Diagnosis Right tennis elbow Tenosynovitis of left hand documented in this encounter Additional Health Concerns Assessment Noted Time PHQ-9 Depression Total Score: 9 06/01/20 24 10:07 AM EST documented as of this encounter Care Teams Field Instructor Relationship Specialty Start Date End Date Josefina Pandey MD [address] [place] [phone] PCP - General Family Medicine 11/05/20 documented as of this encounter
--- OUTSIDE RECORDS SUMMARY | 2024-08-24 14:02 | XMS_ITS | Encounter Summary ---
Author Organization [employer] Address [address] [facility] 7t [place] [address] Care Team Providers Care Operations Inspector Name Role Phone Josefina Pandey MD Primary Care Provide r Reason for Visit * Reason Onset Date Comments Appointment Request 08/03/2024 Encounter Details Date Type Department Care Team ([facility] st Contact Info) Description 08/03/2024 Telephone [facility] MEDICINE 230 [place] [address] Nabil Singh MA Appointment Request Social History [...] AM EST Tc from pt returning call. Petrophysicist scheduled pt for follow up on 09/29/24 at 11AM. Pt is requesting a call back to further discuss appointment with digital strategist. Contact pt at [phone] (greenlandic) * Telephone Encounter - Nabil Singh MA - 08/03/2024 2:15 PM EST Tc- Patient to book appt for f\u see message below .Left a voice message to call back and melvi appt. Please contact patient to schedule him a f/u appointment regarding his chronic rhinitis. Patient saw digital strategist who stated he did not have allergies. Patient needs an appointment with PCP to discuss next steps. Thank you! documented in this encounter Plan of Treatment Upcoming Encounters Date Type Department Care Team ([facility] st Contact Info) Description 09/29/2024 11:00 AM EDT Office Visit [facility] MEDICINE 230 [place] [address] Josefina Pandey MD 230 [place] [address] documented as of this encounter Visit Diagnoses Not on filedocumented in this encounter Additional Health Concerns Assessment Noted Time PHQ-9 Depression Total Score: 9 06/01/20 24 10:07 AM EST documented as of this encounter Care Teams Operations Inspector Relationship Specialty Start Date End Date Josefina Pandey MD 230 [place] [address] PCP - General Family Medicine 11/05/20 documented as of this encounter
--- OUTSIDE RECORDS SUMMARY | 2024-08-24 14:02 | XMS_ITS | Encounter Summary ---
Author Organization [employer] Address [address] [place] [address] 7 [place] [address] Care Team Providers Care Paramedic Name Role Phone Josefina Pandey MD Primary Care Provide r Reason for Visit * Reason Onset Date Comments Medication Question 03/09/2023 Encounter Details Date Type Department Care Team ([facility] st Contact Info) Description 03/09/2023 Telephone [facility] MEDICINE [address] [place], [place] [phone] Josefina Pandey MD [address] [place] [address] Medication Question Social History Tobacco Use Types [...] to check . Patric , pharmacist at [facility] stated that the pt is in the coverage gap with his insurance , and will need to pay the $ 119.20 co pay for his inhaler , either brand name . Per [facility] pharmacy the pt may qualify for a secondary insurance .Pt was advised of this ,and was advised to call Nayla in the insurance department at [facility] ( ) to see if he [...] like to discuss oxygen options. Patient speaks upper sorbian. documented in this encounter Plan of Treatment Upcoming Encounters Date Type Department Care Team (Late st Contact Info) Description 09/29/2024 11:00 AM EDT Office Visit [facility] MEDICINE [address] [place] [phone] Josefina Pandey MD [address] [place] [address] documented as of this encounter Visit Diagnoses Not on filedocumented in this encounter Care Teams Paramedic Relationship Specialty Start Date End Date Josefina Pandey MD [address] [place] [address] [phone] PCP - General Family Medicine 11/05/20 documented as of this encounter
--- OUTSIDE RECORDS SUMMARY | 2024-08-24 14:02 | XMS_ITS | Clinical Summary ---
Author Organization [facility] [address] [facility] Address [address] [place] [address] Phone Care Team Providers Care Horse Racetrack Manager Name Role Phone Courtney Combs MD [...] Description 07/25/2024 Telephone Lung Screening Program - [address] [phone] Carmel Benitez [place] Results (Annual Lung Screening- Suspicious findings) 07/15/2024 3:18 PM EST - 07/15/2024 11:59 PM EST Hospital Encounter [facility] CT Scan [address] [place] [address] History of smoking Discharge Disposition: Home or Self Care 07/04/2024 Telephone Lung Screening Program - [place] 299 [facility] [address] [place] [address] Rosa Elena Horn MA from Last 3 Months Immunizations Name Administration Dates Next Due Moderna SARS-CoV-2 COVID-19, mRNA, LNP-S, preservative free 05/28/2021,09/26/2020,08/29/2020 Pfizer (age 5-11) Bivalent, COVID-19 04/08/2022 Pneumococcal conjugate 20 [facility] (Prevnar 20, PCV 20) 2mo and [...] 3a chronic kidney d isease (CKD) ([facility]) Colon cancer screening DX:Colon cancer screening Health [...] Info) Description 09/27/2024 1:45 PM EDT Appointment [facility] CT Scan [address] [place] [phone] 10/07/2024 2:00 PM EDT Office Visit Adult Medicine [facility] [address] [place] [phone] Courtney Combs MD [address] [place] [address] 10/12/2024 11:00 AM EDT Office Visit Thoracic Surgery [facility] [address] [phone] Rafa Sexton PA [address] [address] 10/18/2024 9:10 AM EDT Office Visit Pulmonolgy - [place] 175 [facility] 200 [place] [phone] Callie Kelley NP 175 [facility] 200 [place] [address] Health Maintenance Due Date Last Done Comments [...] Signed Date: 07/23/2024 07:54 ET Workstation ID: [id number] Transcribed By: Self Edit Transcribed Date: 07/23/2024 07:36 ET Narrative 07/23/2024 7:54 AM EST EXAMINATION: CT CHEST WITHOUT CONTRAST LUNG CANCER SCREENING, LOW DOSE CLINICAL INFORMATION: Lung cancer screening. ??Former smoker COMPARISON: Portions of previous 07/10/2023 ?? TECHNIQUE: Multidetector CT. Examination of the chest. Examination of the chest without IV contrast. Reformatting in the coronal and sagittal planes. Device: MyEnergy DLP: 195 mGy-cm CTDI: 4.89 Dose optimization [...] T10. Jess Barton MD IMG CT PROCEDURES Final [...] Maintenance Insurance [employer] MEDICARE Care Teams Horse Racetrack Manager Relationship Specialty Start Date End Date Courtney Combs MD [address] [place] [phone] PCP - General 04/01/23
--- OUTSIDE RECORDS SUMMARY | 2024-08-24 14:02 | XMS_ITS | Encounter Summary ---
Author Organization [employer] Address [address] [facility] 7 [place] [address] Care Team Providers Care Ladle Handler Name Role Phone Josefina Pandey MD Primary Care Provide r Reason for Referral * Consultation (Routine) - Closed Specialty Diagnoses / Procedures Referred By Contlety t Referred To Contact Otolaryngology Diagnoses Chronic rhinitis Josefina Pandey MD [address] [place] [address] Phone: tel: fax: [facility] [address] Phone: tel: fax: Referral ID Status Reason Start Date Expiration Date V isits Requested Visits Authorized [id number] Closed Specialty Services Required 08/17/2024 08/17/2025 1 1 Encounter Details Date Type Department Care Team (Late st Contact Info) Description 08/17/[address] [facility] [address] [place] [address] [phone] Josefina Pandey MD [address] [place], [place] [phone] Chronic rhinitis (Primary Dx) Social History Tobacco [...] Upcoming Encounters Date Type Department Care Team ([facility] st Contact Info) Description 09/29/2024 11:[address] EDT Office [address] [facility] [address] [place] [address] Josefina Pandey MD 230 [place] [address] Scheduled Referrals Name Type Priority Associated Diagnoses Orde r Schedule Referral to ENT Outpatient Referral Routine Chronic rhinitis Expected: 08/17/2024 (Approximate), Expires: 08/17/2025 documented as of this encounter Visit Diagnoses Diagnosis Chronic rhinitis- Primary documented in this encounter Additional Health Concerns Assessment Noted Time PHQ-9 Depression Total Score: 9 06/01/20 24 10:07 AM EST documented as of this encounter Care Teams Ladle Handler Relationship Specialty Start Date End Date Josefina Pandey MD 230 [place] [address] PCP - General Family Medicine 11/05/20 documented as of this encounter
--- OUTSIDE RECORDS SUMMARY | 2024-08-24 14:02 | XMS_ITS | Clinical Summary ---
Author Organization [facility] Address [address] [place] [address] Care Team Providers Care College Athlete Name Role Phone Josefina Pandey MD Primary [...] to complete this topic Insurance Care Teams College Athlete Relationship Specialty Start Date End Date Josefina Pandey MD [address] [place] [phone] PCP - General Internal Medicine 08/29/20
--- OUTSIDE RECORDS SUMMARY | 2024-08-24 14:02 | XMS_ITS | Clinical Summary ---
Author Organization [employer] Address [address] [facility] 7t [place] [address] Care Team Providers Care Boiler Plant Worker Name Role Phone Josefina Pandey MD Primary [...] Type Department Care Team Description 08/17/2024 Telephone [facility] MEDICINE [address] [place] [address] Josefina Pandey MD 08/17/2024 Orders Only [facility] MED[facility]INE [address] [place], [place] [phone] Josefina Pandey MD Chronic rhinitis (Primary Dx) 08/16/2024 Telephone [facility] MEDICINE [address] [place], [place] [phone] Josefina Pandey MD 08/04/2024 Refill [facility] [address] [place], [place] [phone] Josefina Pandey MD Essential hypertension 08/03/2024 Telephone [facility]INE [address] [place] [address] Nabil Singh [place] Appointment Request 08/03/2024 Telephone [facility]INE [address] [place] [address] Josefina Pandey MD FYI 07/02/2024 Refill [facility] [address] [place] [address] Josefina Pandey MD Right tennis elbow; Tenosynovitis of left hand 06/01/2024 10:00 AM EST Office Visit [facility] MEDICINE [address] [place] [address] Josefina Pandey MD Essential hypertension (Primary Dx); Right tennis elbow; Tenosynovitis of left hand; Chronic obstructive pulmonary disease, unspecified COPD type (CMS/HCC); Colon cancer screening; Screening for colon cancer; Chronic gastritis without bleeding, unspecified gastritis type; Benign prostatic hyperplasia (BPH) with straining on urination; Dermatitis; Onychomycosis 06/01/2024 Travel 05/30/2024 Telephone [facility] MEDICINE [address] [place] [address] Nabil Singh MA Chart Prep from Last 3 Months Immunizations Name Administration [...] 11:00 AM EDT Office Visit [facility] MED[facility]INE [address] [place] [address] Josefina Pandey MD 230 [place] [address] Health Maintenance Due Date Last Done Comments [...] 12:05 PM EST Screening for colon cancer LIPID PANEL WITH REFLEX TO DIRECT LDL Routine 05/23/2024 11:48 AM EST Essential hypertension Stage 3a chronic kidney disease (CMS/HCC) HM COLONOSCOPY Routine 01/01/2021 from Last 3 Months or Most Recently Relevant to Health Maintenance Results * Cologuard?? colon cancer screening (06/20/2024 12:05 PM EST) Cologuard Result Negative Negative 06/26/20 6:21 PM EST [facility] (CLIA #:[id number]) Comment: NEGATIVE TEST RESULT. A negative Cologuard [...] cancer. ??Following a negative Cologuard result, the [place] Cancer Society and U.S. Multi-Society Task Force screening guidelines recommend a Cologuard re-screening interval of 3 years. References: [place] [employer] Guideline for Colorectal Cancer Screening: https://www.cancer.org/cancer/moyii-kwpkyv-gttjxk/shaevsybu-jvopypqyb-fhzyngm/ac s-rec ommendations.html.; Brian DK, Shabnam GATICA, Devika OliverosK, Colorectal Cancer Screening: Recommendations for Physicians and Patients from the U.S. Multi-Society Task Force on Colorectal Cancer Screening , Am J Gastroenterology 2017; 112:3340-0549. TEST DESCRIPTION: Composite algorithmic analysis of stool [...] (Sasha Roberts al, N Engl J Med 2014;370(14):7521-0176.) Cologuard may produce a false negative or false positive result (no colorectal cancer or precancerous polyp present at colonoscopy follow up). A negative Cologuard test result does not guarantee the absence of CRC or advanced adenoma (pre-cancer). The current Cologuard screening interval is every 3 years. ([place] Cancer Society and U.S. Multi-Society Task Force). Cologuard performance data in a 10,000 patient pivotal study using colonoscopy as the reference method can be accessed at the following location: www.[employer]/results. Additional description of the Cologuard test process, warnings and precautions can be found at www.[employer].com. Stool specimen (specimen) 06/20/2024 12:05 PM EST 06/21/2024 12:06 PM EST Josefina Garcia MD LAB MOLECULAR DIAGNOS TICS ORDERABLES Final Result Performing Organization Address [facility] Co de Phone Number [facility] (CLIA #:[id number]) [address] [place] [address], * Lipid Panel with Reflex to Direct LDL (05/23/2024 11:48 AM EST) Triglycerides 55 <150 mg/dL [facility] Comment:Desirable Triglyceri de: less than 150 mg/dLBorderline High Triglyceride 150-199 mg/dLHigh Triglyceride: 200-499 mg/dLVery High Triglyceride: greater than or equal to 5OO mg/dL Cholesterol 196 <200 mg/dL [facility] Comment:Desirable Cholestero l: less than 200 mg/dLBorderline High Cholesterol: 200-239 mg/dLHigh Cholesterol: greater than 239 mg/dL LDL Cholesterol Calculated 94 <100 mg/dL [facility] Comment:Desirable LDL: less than 100 mg/dLNear Optimal/Above Optimal LDL: 110- 129 mg/dLBorderline High LDL: 130-159 mg/dLHigh LDL: 160-189 mg/dLVery High LDL: greater than or equal to 190 mg/dL HDL Cholesterol 91 >40 mg/dL [facility] Comment:Desirable HDL: great er than 40 mg/dL Note: This HDL assay may give artificially low results in patients with liver disease. Blood 05/23/2024 11:4 8 AM EST 05/23/2024 1:10 PM EST us Josefina Garcia MD LAB BLOOD ORDERABLES Final Result Performing Organization Address City/[facility] Co de Phone Number [facility] [address] [place] [phone] * Hm Colonoscopy (01/01/2021) us Historical Provider HEALTH MAINTENANCE Final Result from Last 3 Months or Most Recently Relevant to Health Maintenance Insurance [facility] MEDICARE ADVANTAGE HMO Care Teams Boiler Plant Worker Relationship Specialty Start Date End Date Josefina Pandey MD [address] [place] [phone] PCP - General Family Medicine 11/05/20
--- OUTSIDE RECORDS SUMMARY | 2024-08-24 14:02 | XMS_ITS | Encounter Summary ---
Author Organization [facility] Address [address] [place] [address] Care Team Providers Care Fire Management Specialist Name Role Phone Courtney Combs MD Primary Care Prov ider Reason for Referral * Imaging (Routine) - Authorized Specialty Diagnoses / Procedures Referred By Contac t Referred To Contact Radiology Diagnoses Lung nodule Procedures CT Chest wo Contrast (Lung-RADS F/U) Sandra Montero NP [address] [facility] [address] [place] [address] Phone: tel: fax: [facility] Referral ID Status Reason Start Date Expiration Date V isits Requested Visits Authorized [id number] Authorized 08/02/2024 08/02/2025 1 1 Reason for Visit * Reason Onset Date Comments Results 07/25/2024 Annual Lung Scre ening- Suspicious findings Encounter Details Date Type Department Care Team (Late st Contact Info) Description 07/25/2024 Telephone Lung Screening Program - [place] [address] [facility] [address] [place] [phone] Carmel Benitez [place] Results (Annual Lung Screening- [...] of the Lung Cancer Screening Program at [facility].He had his Low Dose Screening [...] were answered and understood. Sandra Montero NP [facility] Lung Cancer Screening Program [address] [place] [address], [address] [phone] * Rosaura Mcdonald MA - 08/02/2024 3:06 [...] Info) Description 09/27/2024 1:45 PM EDT Appointment [facility] CT Scan [address] [place] [address] 10/07/2024 2:00 PM EDT Office Visit Adult Medicine [address] [phone] Courtney Combs MD [address] [place] [address] 10/12/2024 11:00 AM EDT Office Visit Thoracic Surgery [facility] [address] [phone] Rafa Sexton, KENDRA [address] [address] 10/18/2024 9:10 AM EDT Office Visit Pulmonolgy - [place] [address] [facility] [address] [place] [address] Callie Kelley NP [address] [facility] [address] [facility] [address] [place] [address] Scheduled Orders Name Type Priority Associated Diagnoses Orde r Schedule CT Chest wo Contrast (Lung-RADS F/U) Imaging Routine Lung nodule Expected: 09/27/2024, Expires: 08/02/2025 documented as of this encounter Visit Diagnoses Diagnosis Lung nodule- Primary Other diseases of lung, not elsewhere classified documented in this encounter Care Teams Fire Management Specialist Relationship Specialty Start Date End Date Courtney Combs MD [address] [place] [phone] PCP - General 04/01/23 documented as of this encounter
--- OUTSIDE RECORDS SUMMARY | 2024-08-24 14:02 | XMS_ITS | Encounter Summary ---
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 Name Role Phone Josefina Pandey MD Primary Care Provide r Encounter Details Date Type Department Care Team ([facility] st Contact Info) Description 08/16/2024 Telephone [facility] MEDICINE 230 [place], [place] [phone] Josefina Pandey MD [address] [place] [address] Social History Tobacco Use Types Packs/Day Years [...] patient just want's to discuss with provider family mediator appointment .He wants to know why he was not referred to a Otorhinolaryngology instead .States he had a conversation with and she said she would referred him to Otorhinolaryngology not family mediator.Patient was advised to wait for his next [...] plan . Tc from pt returning call. Gandy Dancer scheduled pt for follow up on 09/29/24 at 11AM. Pt is requesting a call back to further discuss appointment with family mediator. documented in this encounter Plan of Treatment Upcoming Encounters Date Type Department Care Team ([facility] st Contact Info) Description 09/29/2024 11:00 AM EDT Office Visit [facility] MEDICINE [address] [place] [address] Josefina Pandey MD [address] [place] [address] documented as of this encounter Visit Diagnoses Not on filedocumented in this encounter Additional Health Concerns Assessment Noted Time PHQ-9 Depression Total Score: 9 06/01/20 24 10:07 AM EST documented as of this encounter Care Teams Ready Mix Truck Driver Relationship Specialty Start Date End Date Josefina Pandey MD [address] [place] [address] PCP - General Family Medicine 11/05/20 documented as of this encounter
== END 2024-08-24 12:00 | disposition home or self-care (01) ==
DX: M79.645 Pain in left finger(s) (principal)
CPT/HCPCS: 99213

== ENCOUNTER → 2024-08-24 11:12 | Outpatient (BNVA) | payer MEDICARE, SELFPAY | DX: M77.8 Other enthesopathies, not elsewhere classified (principal) | CPT/HCPCS: 99212 ==